=== PATIENT | female | born 1985 | race Caucasian/White ===

== ENCOUNTER 2016-08-29 04:46 | Inpatient (IN) | payer MEDICAID, OTHER ==
[~2016-08-29] VITALS: Ht 149.9 cm; Wt 57.3 kg
[2016-08-29 04:55] VITALS: Ht 149.9 cm; Wt 57.3 kg
[2016-08-29 04:57] VITALS: BP 133/94; PULSE 113; RESP 20
[2016-08-29] MEDS ORDERED: TERBUTALINE 1 ML ONE (05:02)
[2016-08-29] MEDS ORDERED: morphine 10 MG INJ ONE (05:13)
[2016-08-29] MEDS: LACTATED RINGER'S 1,000 ML IV SCH ×6 (05:17→22:42)
[2016-08-29] MEDS ORDERED: MAGNESIUM SULFATE 6 GM in SOD CHLORIDE 0.9% 100 ML IV ONE (05:30)
[2016-08-29] MEDS ORDERED: FENTAnyl 50 MCG/ML VIAL IV PRN ×2 (05:30→23:30)
[2016-08-29] MEDS ORDERED: morphine 10 MG INJ IV ONE (05:30)
[2016-08-29] MEDS ORDERED: BUTORPHANOL 2 MG INJ IV ONE (05:30)
[2016-08-29] MEDS ORDERED: TERBUTALINE 1 MG/ML INJ SC ONE (05:30)
[2016-08-29] MEDS ORDERED: ONDANSETRON 4 MG INJ ONE ×2 (05:31→23:01)
[2016-08-29] MEDS ORDERED: ONDANSETRON 4 MG INJ IV STA (05:32)
--- NOTE | 2016-08-29 05:39 | HP ---
Date/Time of Note Date/Time of Note DATE: 08/29/16 TIME: 05:31 OB - History Hx of Present Free Text/Dictation 30 yo P2 @ 32 wks 4 days, presents in severe pain, w small amt of bleeding. She has h/o 2 prior c/d. She was given her first shot of steroids at [facility] and sent home. Patient's pain decreased slightly after terbutaline and morphine. Sonogram shows intact uterus (unlikely ruptured) and does not show signs of placental abruption. vtx Chief Complaint: Ctx and severe abdominal pain Estimated Due Date: Oct 20, 2016 : 3 Para: 2 Care: Other Other Concerns: prior c/d for abruption repeat c/d at 32 wks for PTL Past Family/Social History * Past Medical, Surgical, Family and Obstetric Histories reviewed from chart. OB Admission Exam Vital Signs Vital Signs Vital Signs Date Time Temp Pulse Resp B/P Pulse Ox O2 Delivery O2 Flow Rate FiO2 08/29/16 04:57 98.6 113 20 133/94 Physical Exam Abdomen: WNL Extremities: Normal Cervical Dilatation: 2cm Effacement: 75% Station: -2 Membranes: Intact Heart Rate: 140's Accelerations: Accelerations Present Decelerations: Variable Decelerations Varibility: Moderate Contractions on Admission: < 5 Minutes Apart Intensity: Moderate OB Assessment/Plan Other Assessment: 30 yo P2 @ 32 wks 4 days presents in PTL, r/o abruption - given terbutaline and morphine - sono shows vtx fetus, no signs of uterine rupture or placental abruption Other plan: will start Magnesium sulfate for neuroprotection and tocolysis If FHT remains Cat I, will attempt to tocolize until second dose of steroids, tomorrow at 3pm If FHR decelerations or patient starts hemorrhaging, will george to emergent c/d. LOVELY HERNANDEZ MD Aug 29, 2016 05:39
[2016-08-29 06:21] LABS: INR 0.94; PROTIME 12.6 Sec (12.2-14.2)
[2016-08-29 06:22] LABS: PARTIAL THROMBOPLASTIN TIME 25.7 Sec (25.0-35.0)
[2016-08-29] MEDS ORDERED: CARBOPROST 250 MCG INJ IM PRN (06:30)
[2016-08-29] MEDS ORDERED: MISOPROSTOL 200 MCG TAB PR PRN ×2 (06:30→23:00)
[2016-08-29] MEDS ORDERED: CEFAZOLIN 2 GM/50 ML (PMX) 50 ML IV SCH (06:30)
[2016-08-29] MEDS ORDERED: METHYLERGONOVINE 0.2 MG INJ IM PRN (06:30)
[2016-08-29] MEDS ORDERED: OXYTOCIN 30 UNITS/LR 500 ML IV PRN (06:30)
--- NOTE | 2016-08-29 06:34 | RADRPT ---
PROCEDURE: Obstetrical ultrasound, limited. CLINICAL INDICATION: Pelvic pain. TECHNIQUE: Multiple sonographic images of the pelvis were obtained using transabdominal technique . Images were obtained with mascorro scale and color Doppler. The images were reviewed on a PACS works tation. COMPARISON: No prior studies are available for comparison. FINDINGS: There is a single living intrauterine gestation with the fetus in a vertex presentation. hear t tones of 150 beats per minute are identified. The placenta is posterior in location, grade 1-2. There is normal amniotic fluid volume with an PIERRE of 10.6 cm. There is no evidence of placenta prev ia or abruption. Measurements were made in order to determine age. The results are as follows: BPD =8.34 cm HC =29.83 cm AC =27.84 cm FL =6.26 cm. Estimated gestational age of approximately 32 weeks and 5 days. The estimated date of delivery is 10/19/2016. The EFW = 1946 +/- 292 grams. Estimated weight percentage equals 31.6%. IMPRESSION: Single viable intrauterine gestation of approximately 32 weeks and 5 days, with an ultrasound CONNER of 10/19/2016. .Nabil Ying MD, MD Date Time Electronically viewed and signed by .Nabil Ying MD, MD on 08/29/2016 06:33 .T/
[2016-08-29 06:37] LABS: BASOPHILS % 0.1 % (0.0-2.0); HEMATOCRIT 28.5 % (37.0-47.0); HEMOGLOBIN 9.7 g/dl (12.0-16.0); LYMPHOCYTES # 1.8 10^3/ul (0.8-2.9); LYMPHOCYTES % 10.8 % (15.0-51.0); MEAN CORPUSCULAR HEMOGLOBIN 29.7 pg (29.0-33.0); MEAN CORPUSCULAR HGB CONC 34.1 g/dl (32.0-37.0); MEAN CORPUSCULAR VOLUME 87.1 fl (82.0-101.0); MEAN PLATELET VOLUME 8.8 fl (7.4-10.4); MONOCYTE # 0.3 10^3/ul (0.3-0.9); MONOCYTES % 1.7 % (0.0-11.0); NEUTROPHIL # 14.5 10^3/ul (1.6-7.5); NEUTROPHILS % 87.4 % (39.0-77.0); PLATELET COUNT 410 10^3/UL (140-440); RED BLOOD COUNT 3.27 10^6/ul (4.20-5.40); RED CELL DISTRIBUTION WIDTH 15.3 % (11.5-14.5); UNCORRECTED WBC 16.6 10^3/ul (4.8-10.8); WHITE BLOOD COUNT 16.6 10^3/ul (4.8-10.8)
[2016-08-29 06:47] LABS: CONDITION 1; LH ANALYZER COMMENTS 1
[2016-08-29] MEDS: MAGNESIUM SULFATE 20 GM/500 ML 500 ML IV SCH ×2 (06:53→18:03)
[2016-08-29] MEDS: morphine 4 MG/ML VIAL IV PRN (06:56)
[2016-08-29] MEDS ORDERED: BETAMET NA PHOS/AC(6 MG/ML) 5ML INJ IM ONE (07:00)
[2016-08-29] MEDS ORDERED: AMPICILLIN 2 GM/NS (PMX) 100 ML IVPB ONE (07:00)
--- NOTE | 2016-08-29 07:34 | TRIAGE ---
OB Triage Datetime Report Generated by CPN: 08/29/2016 07:34 Datetime: 08/29/2016 07:00 Labor Evaluation Frequency: INDETERMINATE Monitor Mode: External Pattern: Normal: <= 5 Contractions in 10 Minutes Heart Rate FHR Baseline Rate: 150 FHR Baseline Changes: No Baseline Change Variability: Minimal - Undetectable to <=5 bpm Decelerations: Variable Category: Category II Comments: APPROPRIATE FOR GESTATIONAL AGE Datetime: 08/29/2016 06:41 Comments: external monitors reapplied, pt. took monitors off Datetime: 08/29/2016 06:30 Labor Evaluation Frequency: 1.5-2 Monitor Mode: External Duration (sec)2399: 80-100 Pattern: Normal: <= 5 Contractions in 10 Minutes Heart Rate FHR Baseline Rate: 150 Monitor Mode: External US FHR Baseline Changes: No Baseline Change Variability: Moderate 6-25 bpm Decelerations: None Category: Category I Datetime: 08/29/2016 06:11 Pain Assessment Comments: PT. SCREAMING, MOVING CONSTANTLY IN BED, STATES PAIN MEDS HAVE NOT HELPE D. Datetime: 08/29/2016 06:09 Vaginal Exam Dilatation (cms): 2.0 Effacement (%): 80 Station: -1 Exam By: LEWIS RN Cervix, Consistency: Soft Cervix, Position: Posterior Presentation 'A': Cephalic Datetime: 08/29/2016 06:00 Labor Evaluation Frequency: 2 Monitor Mode: External Duration (sec)2399: 70-100 Pattern: Normal: <= 5 Contractions in 10 Minutes Heart Rate FHR Baseline Rate: 145 Monitor Mode: External US FHR Baseline Changes: No Baseline Change Variability: Moderate 6-25 bpm Decelerations: Variable Category: Category I Datetime: 08/29/2016 05:57 Monitor Mode: Palpation Resting Tone Ep[place]us: Relaxed Pain Assessment Pain Scale: 10 Pain Presence: Constant Pain Type: Cramping; Contraction Pain Location: Abdomen Pain Assessment Comments: pain meds ineffective Datetime: 08/29/2016 05:37 Nausea/Vomiting: Present Datetime: 08/29/2016 05:33 Stage of : OB Triage Datetime: 08/29/2016 05:15 Stage of : OB Triage Datetime: 08/29/2016 05:14 Labor Evaluation Frequency: 1.5-2 Monitor Mode: External Duration (sec)2399: 70-110 Pattern: Normal: <= 5 Contractions in 10 Minutes Heart Rate FHR Baseline Rate: 135 Monitor Mode: External US FHR Baseline Changes: No Baseline Change Variability: Moderate 6-25 bpm Accelerations: 15X15 Decelerations: Variable Datetime: 08/29/2016 05:05 Stage of : OB Triage Datetime: 08/29/2016 04:57 Assessment Type: Triage EGA: 32.4 Contractions: Regular Vaginal Bleeding: Small Maternal Assessment Level of Consciousness: Fully Conscious Headache: Denies Blurred Vision: No Respiratory Effort: Labored; Regular Rhythm; Equal Expansion Breath Sounds, Left: Clear and Equal Breath Sounds, Right: Clear and Equal Nausea/Vomiting: Denies RUQ Epigastric Pain: Denies Lower Extremities Edema: None Degree: None Upper Extremities Edema: None Degree: None Facial Edema: None Fall Risk Assessment History of Falling: (0) No Secondary Diagnosis: (0) No Ambulatory Aid: (0) Bedrest/Nurse Assist IV Therapy: (0) No Gait: (0) Normal/Bedrest/Immobile Mental Status: (0) Oriented to Own Ability Fall Score: 0 Fall Risk Score Definition: No Risk: No action required Datetime: 08/29/2016 04:53 Time of Arrival: 08/29/2016 04:43 Arrived By: Wheelchair Arrived From: Home Chief Complaint: BLEEDING SINCE 08/28/16 04:43 UC'S SINCE 08/28/16, WAS SEEN AT [facility] FOR PTL Movement: Present Contractions: Regular Rupture of Membranes: Denies Vaginal Bleeding: Small Vaginal Discharge: Denies Recent Sexual Intercouse: Denies Abdominal Trauma: Not Applicable Patient Complaints: Contractions Time Provider Notified: 08/29/2016 04:55 Provider Notified: MARY Initial Plan: EFM, IV HYDRATION, CALL OB Vaginal Exam Dilatation (cms): 2.0 Effacement (%): 80 Station: -2 Exam By: LEWIS TAVERAS Vaginal Bleeding: Scant Cervix, Consistency: Soft Cervix, Position: Posterior Datetime: 08/29/2016 04:50 Pain Assessment Pain Scale: 10 Pain Presence: Constant Pain Type: Contraction Pain Location: Abdomen Pain Assessment Comments: pt. arrived on unit via wc, screaming and writhing in pain
[2016-08-29 07:49] LABS: ADD UMIC YES; URINE BILIRUBIN (Dip) NEGATIVE (NEGATIVE); URINE BLOOD (Dip) 1+ (NEGATIVE); URINE COLOR LT. YELLOW (YELLOW); URINE KETONES (Dip) 3+ (NEGATIVE); URINE LEUKOCYTE ESTERASE (Dip) NEGATIVE (NEGATIVE); URINE NITRITE (Dip) NEGATIVE (NEGATIVE); URINE TOTAL PROTEIN (Dip) NEGATIVE (NEGATIVE); URINE UROBILINOGEN (Dip) 0.2 E.U./dL (0.1-1.0)
[2016-08-29 08:22] LABS: BACTERIA,URINE MODERATE; URINE RBCS 0-2 /HPF (0)
[2016-08-29 08:24] LABS: BARBITURATES Negative (NEGATIVE); BENZODIAZEPINES Negative (NEGATIVE); CANNABINOIDS Positive (NEGATIVE); COCAINE Negative (NEGATIVE); OPIATES Positive (NEGATIVE)
--- NOTE | 2016-08-29 08:52 | RADRPT ---
PROCEDURE: Renal US. CLINICAL INDICATION: Flank pain TECHNIQUE: Multiple sonographic images of the kidneys were obtained. The images were reviewed on a PACS workstation. COMPARISON: No prior studies are available for comparison. FINDINGS: The kidneys are well visualized. The right kidney measures 10 x 4.1 cm. The left kidney measures 11. 3 x 5.8 cm. There are no focal areas of abnormal echogenicity. Mild bilateral hydronephrosis is seen , right greater than left. There is no evidence for obstructive uropathy. The visualized urinary latricia dder is decompressed. A gravid uterus is seen. IMPRESSION: Mild bilateral hydronephrosis which may be secondary to the gravid uterus. A follow-up w ith renal ultrasound is suggested to ensure resolution. RPTAT: HPNM Physician Minh Date Time Electronically viewed and signed by Physician Minh on 08/29/2016 08:52 /
[2016-08-29] MEDS: AMPICILLIN 1 GM/NS (PMX) 50 ML IVPB SCH ×4 (11:35→18:09)
--- NOTE | 2016-08-29 11:58 | HP ---
Date/Time of Note Date/Time of Note DATE: 08/29/16 TIME: 11:36 OB - History Hx of Present Free Text/Dictation 30 YO with IUP at 32 weeks initially presented to [facility] ([facility]) yesterday at 0400 due to constant left sided abdominal pain. At that she did not have bleeding or LOF or UCs. she was evaluated given Stadol and negative renal sono and was discharged. she started feeling UCs, cramps, vaginal bleeding and blood in her urine and called 911 yesterday at 4 pm. she went back to [facility], she had one dose of steroid and pain meds and ob sono. she was observed and she was told her cervix was closed per pt. she was discharged. today at 0400 she came to [facility] c/o pain( unable to describe the pain well), felt urinary sxs, felt pressure and was not feeling well. she was started on Magnesium sulfate and had negative ob and renal sono and had 2nd dose of steroid. urine culture and GBS sent. she is on Amp. she denies any pain or VB or LOF at this time. she has h/o kidney stone 4 previous times and both her parents have strong h/o kidney stones as well. she required stent placement with last IUP. stent had to be removed due to infection. she is late entry to my office for care she also has some elevated BPs. she denies headache or visual changes or RUQ pain Ultrasounds: Other (she was seen by [facility] ronna on Aug 26 due to late entry to [facility]. she had normal sono) Obstetrical Complications: Gestational Hypertension Medical Complications: Other (renal stones and h/o c/s x 2) Past Family/Social History * Past Medical, Surgical, Family and Obstetric Histories reviewed from chart. OB Admission Exam Vital Signs Vital Signs Vital Signs Date Time Temp Pulse Resp B/P Pulse Ox O2 Delivery O2 Flow Rate FiO2 08/29/16 04:57 98.6 113 20 133/94 Physical Exam HEENT: WNL Heart: Rhythm Normal Lungs: Clear, Equal Abdomen: WNL ( back: no CVA tenderness) Extremities: Normal Reflexes: Normal Cervical Dilatation: 2cm Effacement: 75% Station: -3 Membranes: Intact Last 72 hours Lab Results CBC & BMP 08/29/16 04:51 OB Assessment/Plan Other Assessment: IUP 32 weeks Labor. she was told cervix was closed yesterday and she is 2 cm now. no cervical change while at [facility] Vaginal Bleeding. may be due to labor but it also may be due to abruption because she also has elevated BP hypertension. r/o PIH h/o c/s x 2 h/o renal stone Other plan: admit Amp urine culture, GBS culture 24 hr urine collection Magnesium sulfate may be given up to 48 hrs ronna and valeriy consult will treat severe range BPs with Labetalol RICARDO MONGE MD Aug 29, 2016 11:46
[2016-08-29] MEDS ORDERED: LABETALOL 200 MG TAB PO PRN (12:30)
[2016-08-29 13:12] LABS: ALBUMIN 4.2 g/dl (3.3-4.9)
[2016-08-29 13:13] LABS: POTASSIUM 4.2 mmol/L (3.5-5.1)
[2016-08-29 13:15] LABS: ALBUMIN/GLOBULIN RATIO 1.16; BILIRUBIN,INDIRECT 0.2 mg/dl (0-1.1); BILIRUBIN,TOTAL 0.2 mg/dl (0.2-1.3); CREATININE 0.43 mg/dl (0.44-1.00); TOTAL PROTEIN 7.8 g/dl (6.1-8.1)
[2016-08-29 13:16] LABS: CALCIUM 9.5 mg/dl (8.4-10.2); PHOSPHORUS 3.2 mg/dl (2.5-4.9)
--- NOTE | 2016-08-29 16:22 | CONS ---
DATE OF ADMISSION: 08/29/2016 DATE OF CONSULTATION: 08/29/2016 HISTORY OF PRESENT ILLNESS: This is a 30-year-old G3, P2 female who was admitted to [facility] on 08/29/2016 at 32 weeks and 4 days gestational age. Her chief complaint is vaginal bleeding, as well as onset of contractions. She was seen at [facility] on 08/28/2016, given shot of betamethasone and discharged, but she is now receiving magnesium sulfate, a second dose of betamethasone, as well as antibiotics. I was requested to perform consultation by the hoop punch and coiler operator helper. I spoke with mom at length regarding complications associated with delivery at 32 weeks. She reportedly had a previous born at 32 weeks that was cared for at [facility]. We discussed survival data. We discussed morbidities associated with delivery at this gestational age, including but not limited to respiratory distress, syndrome requiring chronic ventilator, as well as chronic oxygen needs, apnea of prematurity, sepsis, as well as necrotizing enterocolitis. Discussed future and long-term morbidities including but not limited to cerebral palsy, attention deficit disorder, learning disability and autism. Mom verbalized her understanding of our discussion. I did encourage her to provide breast milk for this infant. All questions were answered at this point. Thank you for allowing us to participate in the care of this patient. Should any further questions arise, please do not hesitate to contact us. Dictated By: YUE HORTON MD, AM/BENEDICTO Conf#: [id number] DID#: [id number] MTDD
[2016-08-29] MEDS ORDERED: morphine 4 MG/ML VIAL IV STA (20:52)
[2016-08-29] MEDS ORDERED: morphine 10 MG INJ IM ONE (21:00)
[2016-08-29] MEDS ORDERED: LACTATED RINGER'S 1,000 ML IV ONE (21:07)
[2016-08-29] MEDS ORDERED: CITRIC ACID/NA CITRATE 30 ML CUP PO ONE (21:30)
[2016-08-29] MEDS ORDERED: METOCLOPRAMIDE 10 MG INJ IV ONE (21:30)
[2016-08-29] MEDS ORDERED: FAMOTIDINE 20 MG INJ IV ONE (21:30)
[2016-08-29] MEDS ORDERED: morphine SULFATE/PF (10 MG/10 ML) INJ ONE (22:33)
[2016-08-29] MEDS ORDERED: FENTAnyl 50 MCG/ML VIAL ONE (22:33)
[2016-08-29] MEDS ORDERED: PHENYLephrine (100 MCG/ML) 5ML SYG ONE ×3 (22:44→23:11)
[2016-08-29] MEDS ORDERED: MIDAZOLAM 1 MG/ML 2 ML INJ ONE (22:58)
[2016-08-29] MEDS ORDERED: NA PHOSPHATE/BIPHOS 133 ML ENEMA PR PRN (23:00)
[2016-08-29] MEDS ORDERED: LANOLIN 7 GM TUBE TOP PRN (23:00)
[2016-08-29] MEDS ORDERED: OXYCODONE/ACETAMINOPHEN (5/325) TAB PO PRN (23:00)
--- NOTE | 2016-08-29 23:10 | PREOPHP ---
DATE OF ADMISSION: 08/29/2016 HISTORY OF PRESENT ILLNESS: She is a 30-year-old 4, para 3, at 32 weeks, reports to labor and delivery today complaining of vaginal bleeding and severe abdominal pain. She was give n tocolysis using magnesium sulfate as well as pain management by morphine sulfate. She was noticed to have vaginal bleeding on arrival, and her bleeding subsided for several hours, and she was feeli ng fine until about 2 hours ago when she started to have a significant amount of vaginal bleeding an d significant amount of abdominal pain requiring large amount of morphine. Because she has active v aginal bleeding, the decision was made to proceed with repeat delivery for fear of abruptio n and possible ruptured uterus. I discussed with the patient the risks, benefits, indications, alte rnatives of procedure including but not limited to risk of infection; bleeding; damage to other orga ns, bowel, bladder; hernia formation; scar formation; blood transfusions; possibility of emergency h ysterectomy; possibility that tubal ligation may fail and she may have a in future; the fa ct that the baby is premature, and the risks of physical or mental handicap due to prematurity were all discussed with patient. She was allowed to ask questions. All her questions were answered. In formed consent has been obtained. The patient agrees with management to proceed with repeat cesarea n delivery and tubal ligation at this time. PAST MEDICAL HISTORY: Kidney stones. PAST SURGICAL HISTORY: Stent placement, delivery x2. ALLERGIES: NO KNOWN DRUG ALLERGIES. MEDICATIONS: 1. vitamins. 2. Iron. REVIEW OF SYSTEMS: Significant as above. PHYSICAL EXAMINATION: VITAL SIGNS: Stable. She is afebrile. GENERAL: No acute distress. HEENT: No thyromegaly. HEART: Regular rate and rhythm. LUNGS: Clear to auscultation bilaterally. ABDOMEN: Soft, gravid. CERVIX: Not examined at this time, but she was 2 cm earlier. EXTREMITIES: No edema. ASSESSMENT: 1. at 32 weeks. 2. Abruption. 3. labor. 4. History of delivery x2. 5. Desires tubal ligation. 6. Active vaginal bleeding. PLAN: Repeat delivery and tubal ligation. Informed consent has been obtained. Dictated By: RICARDO FOY/BENEDICTO Conf#: [id number] [facility]#: [id number]
[2016-08-29] MEDS ORDERED: OXYTOCIN 30 UNITS/LR 500 ML IV ONE (23:18)
[2016-08-29] MEDS ORDERED: HYDROmorphONE (0.2 MG/ML) 10ML SYG IV PRN ×3 (23:30)
[2016-08-29] MEDS ORDERED: DIPHENHYDRAMINE 50 MG INJ IV PRN (23:30)
[2016-08-29] MEDS ORDERED: ONDANSETRON 4 MG INJ IV PRN (23:30)
[2016-08-29] MEDS ORDERED: PROCHLORPERAZINE 10 MG INJ IV PRN (23:30)
[2016-08-29] MEDS ORDERED: MEPERIDINE 25 MG INJ IV PRN (23:30)
[2016-08-29 23:39] LABS: AADO2 Cord Arterial 66.8 mmHg; Arterial Cord Blood pCO2 42.7 mmHG (25-50); CBA Oxygen Sat 74.3 mmHG; CBA Total Hemglobin 16.8 g/dl; Cord Blood Arterial pO2 31.8 mmHG (15.0-45.0); Fraction OxyHgb Cord Arterial 72.5 %; MODE ROOM AIR; MetHgb Cord Arterial 1.1 %; Sample Type CBA
[2016-08-29 23:41] LABS: CBV Base Excess -4.5 mmol/L; CBV Oxygen Sat 86.3 mmHG; CBV Total Hemglobin 16.6 g/dl; Cord Blood Venous AADO2 64.5 mmHg; Cord Blood Venous pO2 40.6 mmHG (15.0-45.0); Fraction OxyHgb Cord Venous 84.7 %; MODE ROOM AIR; MetHgb Cord Venous 0.9 %; Sample Type CBV
[2016-08-30] MEDS ORDERED: DIPHENHYDRAMINE 50 MG INJ IV PRN
[2016-08-30] MEDS ORDERED: HYDROmorphONE 1 MG/ML SYG IV PRN
[2016-08-30] MEDS ORDERED: NALOXONE (0.4 MG/ML) INJ IV PRN
[2016-08-30] MEDS ORDERED: ONDANSETRON 4 MG INJ IV PRN
[2016-08-30] MEDS ORDERED: ZOLPIDEM 5 MG TAB PO PRN
[2016-08-30] MEDS ORDERED: PROCHLORPERAZINE 10 MG INJ IV PRN
[2016-08-30] MEDS: OXYTOCIN 30 UNITS/LR 500 ML IV SCH ×2 (00:42→02:11)
[2016-08-30] MEDS: AMPICILLIN 1 GM/NS (PMX) 50 ML IVPB SCH (01:00)
[2016-08-30] MEDS: MAGNESIUM SULFATE 20 GM/500 ML 500 ML IV SCH (01:24)
--- NOTE | 2016-08-30 01:29 | OPR ---
DATE OF OPERATION: PREOPERATIVE DIAGNOSES: 1. at 32 weeks. 2. labor. 3. Active vaginal bleeding. 4. Abruption. 5. History of previous delivery x2. POSTOPERATIVE DIAGNOSES: 1. at 32 weeks. 2. labor. 3. Active vaginal bleeding. 4. Abruption. 5. History of previous delivery x2. OPERATION PERFORMED: Repeat delivery. The patient also desires tubal ligation. SURGEON: Ricardo Ron MD ESTIMATED BLOOD LOSS: 700 COMPLICATIONS: None. CONSENT: Please see preop H and P for consent. DESCRIPTION OF PROCEDURE: The patient was taken to the operating room, and spinal anesthesia was gi dennise. The patient was prepped and draped in the usual sterile fashion. Knife was used to make a Pfa nnenstiel skin incision. Incision was taken down in layers. The fascia was cut and undermined, sep arated from the underlying muscle using sharp and blunt dissection. All bleeders were cauterized. Her peritoneum was entered bluntly. A low transverse skin incision was developed over the uterus, a nd a viable was delivered in vertex presentation. The cord was clamped and cut, handed to __ __ for 60 seconds. The placenta was delivered intact, and the uterus was exteriorized, wrapped with a moist lap. The inside uterus was cleaned with dry lap. All debris and membranes were removed. Uterine incision was then closed using #1 Monocryl in 2 layers. A 6 cm distal end of the right tube was ligated 3 times using 0 plain ties. The ligated portion was cut, sent to Pathology. Same procedure was done on contralateral side. There was no bleeding from the tubal ligation site. The site of delivery was evaluated with no bleeding. Rectus mus dontae, rectus fascia and peritoneum were evaluated. All bleeders cauterized. Peritoneal cavity was e xplored. There were no surgical instruments or laps left behind. Peritoneum and rectus muscles kris sed using 2-0 Monocryl, and fascia was closed using #1 Vicryl. Subcutaneous tissue was cleaned, irr igated. All bleeders cauterized, undermined and closed using 2-0 plain and then skin closed using 4 -0 Monocryl. All counts correct. Dictated By: RICARDO FOY/BENEDICTO Conf#: [id number] [facility]#: [id number]
--- NOTE | 2016-08-30 02:21 | DELSUM ---
Delivery Summary A-C Datetime Report Generated by CPN: 08/30/2016 02:21 DELIVERY PERSONNEL Practice Professional: Gallagher, Crystal MATERNAL INFORMATION Delivery Anesthesia: Spinal Medications in Delivery: LR with Pitocin 30 units Estimated Blood Loss (ml): 600 Placenta Cultured: Yes Maternal Complications: Other Other Maternal Complications: suspected placenta abruption, vaginal bleeding LABOR SUMMARY EDC: 10/20/2016 00:00 No. Babies in Womb: 1 Attempted: No Labor Anesthesia: None LABOR INFORMATION Reason for Induction: Not Applicable Oxytocin: N/A Group B Beta Strep: Not Done Antibiotics # of Doses: 5 Antibiotics Time of Last Dose: 2235 Steroids Given: <24Hrs before Delivery Reason Steroids Not Administered: Not Applicable MEMBRANES Membranes Rupture Method: Artificial Rupture of Membranes: 08/29/2016 22:53 Length of Rupture (hr): 0.03 Amniotic Fluid Color: Clear Amniotic Fluid Amount: Moderate Amniotic Fluid Odor: Normal STAGES OF LABOR Stage 3 hr: 0 Stage 3 min: -2 CSECTION DELIVERY Primary Indication: Other Other Primary Indication: suspected abpuption Secondary Indication: N/A CSection Urgency: Non Elective CSection Incidence: Repeat Labor: Labor Elective: Nonelective CSection Incision: Lower Uterine Transverse Sterilization Procedure: [place] BABY A INFORMATION Delivery Date/Time: 08/29/2016 22:55 Method of Delivery: Born in Route : No : N/A Forceps: N/A Vacuum Extraction: N/A Shoulder Dystocia : No SHOULDER DYSTOCIA BABY A Delivery Date/Time: 08/29/2016 22:55 PRESENTATION/POSITION BABY A Presentation: Cephalic Cephalic Presentation: Vertex Breech Presentation: N/A PLACENTA INFORMATION BABY A Placenta Delivery Time : 08/29/2016 22:53 Placenta Method of Delivery: Manual Removal Placenta Status: Delivered SCORES BABY A Heart Rate 1 min: >100 bpm Resp Effort 1 min: Good Cry Reflex Irritability 1 min: Cough/Sneeze/Pulls Away Muscle Tone 1 min: Active Motion Color 1 min: Body [place], Extremit Blue Resuscitation Effort 1 min: Tactile Stimulation SCORE 1 MIN: 9 Heart Rate 5 min: >100 bpm Resp Effort 5 min: Good Cry Reflex Irritability 5 min: Cough/Sneeze/Pulls Away Muscle Tone 5 min: Active Motion Color 5 min: Body [place], Extremit Blue Resuscitation Effort 5 min: Tactile Stimulation SCORE 5 MIN: 9 INFORMATION BABY A Gestational Age at Delivery: 32.4 Gestational Status: - <34 Weeks Infant Outcome : Liveborn Condition : Stable Sex: Female IDENTIFICATION/MEDS BABY A ID Band Number: [id number] Sensor Applied: N/A Vitamin K Given : Not Given Erythromycin Given: Not Given WEIGHT/LENGTH BABY A Infant Birthweight (gm): 1810 Infant Weight (lb): 4 Weight (oz): 0 Length (in): 17.00 Length (cm): 43.18 CORD INFORMATION BABY A No. Cord Vessels: 3 Nuchal Cord : Around Neck x1, Loose Cord Blood Taken: Yes Suction: Mouth; Nose ASSESSMENT BABY A Infant Complications: Other Infant Complications- Other: Physical Findings at Delivery: Within Normal Limits Infant Respirations: Appears Normal Head Bander And Liner Operator/ALS Called : Yes Infant Care By: Jackeline Singleton RN, Lance RT Transferred To: NICU
[2016-08-30 02:35] VITALS: BP 128/80; PULSE 85; RESP 18
[2016-08-30] MEDS ORDERED: KETOROLAC 30 MG INJ IV PRN ×2 (03:00)
[2016-08-30] MEDS: LACTATED RINGER'S 1,000 ML IV SCH ×9 (05:07→22:42)
[2016-08-30] MEDS: IBUPROFEN 600 MG TAB PO SCH ×4 (05:09→18:00)
[2016-08-30 05:30] VITALS: BP 106/63; PULSE 80; RESP 18
[2016-08-30 08:22] LABS: HEMATOCRIT 21.1 % (37.0-47.0); HEMOGLOBIN 7.2 g/dl (12.0-16.0); LYMPHOCYTES # 1.8 10^3/ul (0.8-2.9); LYMPHOCYTES % 7.5 % (15.0-51.0); MEAN CORPUSCULAR HEMOGLOBIN 29.6 pg (29.0-33.0); MEAN CORPUSCULAR HGB CONC 34.1 g/dl (32.0-37.0); MEAN CORPUSCULAR VOLUME 86.7 fl (82.0-101.0); MEAN PLATELET VOLUME 8.2 fl (7.4-10.4); MONOCYTE # 1.1 10^3/ul (0.3-0.9); MONOCYTES % 4.7 % (0.0-11.0); NEUTROPHIL # 21.1 10^3/ul (1.6-7.5); NEUTROPHILS % 87.8 % (39.0-77.0); PLATELET COUNT 316 10^3/UL (140-440); RED BLOOD COUNT 2.44 10^6/ul (4.20-5.40); RED CELL DISTRIBUTION WIDTH 16.1 % (11.5-14.5)
[2016-08-30 08:27] VITALS: BP 121/64; PULSE 76; RESP 18
[2016-08-30 08:27] LABS: CONDITION 1; LH ANALYZER COMMENTS 1
[2016-08-30] MEDS: HYDROmorphONE 1 MG/ML SYG IV PRN ×3 (08:27→20:22)
[2016-08-30] MEDS ORDERED: MULTIVIT/MIN/FOLATE/IRON/PREN TAB PO SCH (09:00)
[2016-08-30] MEDS: MULTIVIT/MIN/FOLATE/IRON/PREN TAB PO SCH (09:00)
[2016-08-30] MEDS: SENNA/DOCUSATE NA (8.6MG/50MG) TAB PO SCH ×2 (09:00→20:21)
--- NOTE | 2016-08-30 14:32 | QN ---
Documentation Comment pod1 pt doing well no complaints no sob no cp vss fundus firm CDI no edema a/p pod 1 doing well Anemia-pt asymptomatic. cbc in am JOHN BHAT MD Aug 30, 2016 14:32
[2016-08-30 16:00] VITALS: BP 112/62; PULSE 68; RESP 16
[2016-08-30 20:00] VITALS: BP 128/76; PULSE 79; RESP 18
[2016-08-30] MEDS: FERROUS SULFATE (EC) 325 MG TAB PO SCH (20:21)
[2016-08-31] MEDS: IBUPROFEN 600 MG TAB PO SCH ×3 (00:18→11:13)
[2016-08-31] MEDS: OXYCODONE/ACETAMINOPHEN (5/325) TAB PO PRN ×3 (00:53→12:45)
[2016-08-31] MEDS: morphine 4 MG/ML VIAL IV PRN (01:35)
[2016-08-31] MEDS: LACTATED RINGER'S 1,000 ML IV SCH ×3 (04:06→06:14)
[2016-08-31 04:29] VITALS: BP 119/62; PULSE 79; RESP 18
[2016-08-31 07:56] VITALS: BP 107/59; PULSE 75; RESP 18
[2016-08-31] MEDS: SENNA/DOCUSATE NA (8.6MG/50MG) TAB PO SCH (08:08)
[2016-08-31] MEDS: MULTIVIT/MIN/FOLATE/IRON/PREN TAB PO SCH (08:09)
[2016-08-31] MEDS: FERROUS SULFATE (EC) 325 MG TAB PO SCH ×2 (08:13→12:44)
[2016-08-31 08:35] LABS: BASOPHILS % 0.2 % (0.0-2.0); HEMATOCRIT 20.5 % (37.0-47.0); LYMPHOCYTES # 2.7 10^3/ul (0.8-2.9); LYMPHOCYTES % 18.5 % (15.0-51.0); MEAN CORPUSCULAR HEMOGLOBIN 29.7 pg (29.0-33.0); MEAN CORPUSCULAR HGB CONC 33.9 g/dl (32.0-37.0); MEAN CORPUSCULAR VOLUME 87.6 fl (82.0-101.0); MEAN PLATELET VOLUME 8.2 fl (7.4-10.4); MONOCYTES % 6.9 % (0.0-11.0); NEUTROPHIL # 10.7 10^3/ul (1.6-7.5); NEUTROPHILS % 74.4 % (39.0-77.0); PLATELET COUNT 263 10^3/UL (140-440); RED BLOOD COUNT 2.34 10^6/ul (4.20-5.40); RED CELL DISTRIBUTION WIDTH 15.6 % (11.5-14.5); UNCORRECTED WBC 14.4 10^3/ul (4.8-10.8); WHITE BLOOD COUNT 14.4 10^3/ul (4.8-10.8)
[2016-08-31 08:53] LABS: CONDITION 1; LH ANALYZER COMMENTS 1
[2016-08-31 08:55] LABS: HEMOGLOBIN 6.9 g/dl (12.0-16.0)
[2016-08-31] MEDS ORDERED: INFLUENZA VIRUS VACCINE 0.5 ML (DISPENSING) IM* ONE (09:00)
--- NOTE | 2016-08-31 10:21 | DS ---
Date/Time of Note Date/Time of Note DATE: 08/31/16 TIME: 10:17 Discharge Summary Admission/Discharge Info Admit Date/Time Aug 29, 2016 at 05:50 Discharge Date/Time 08/31/2016 Final Diagnosis s/p repeat delivery and tubal ligation Anemia Patient Condition: Good Procedures repeat c/s and BTL Hx of Present Illness she was admitted in labor. she developed abruption and had R C/S and BTL. she is anemic. she is aware and will take Fe BID. she has Fe Rx at home. + Flatus Hospital Course she was admitted in labor. she developed abruption and had R C/S and BTL. she is anemic. she is aware and will take Fe BID. she has Fe Rx at home. + Flatus Home Meds No Active Prescriptions or Reported Meds Follow-up Plan 2 wks Pending Labs Laboratory Tests Test 08/31/16 07:45 Basophils # 0.010^3/ul (0.0-0.1) Basophils % 0.2% (0.0-2.0) Blood Morphology Comment Eosinophils # 0.010^3/ul (0.0-0.5) Eosinophils % 0.0% (0.0-7.0) Hematocrit 20.5% (37.0-47.0) Hemoglobin 6.9g/dl (12.0-16.0) Lymphocytes # 2.710^3/ul (0.8-2.9) Lymphocytes % 18.5% (15.0-51.0) Mean Corpuscular Hemoglobin 29.7pg (29.0-33.0) Mean Corpuscular Hemoglobin Concent 33.9g/dl (32.0-37.0) Mean Corpuscular Volume 87.6fl (82.0-101.0) Mean Platelet Volume 8.2fl (7.4-10.4) Monocytes # 1.010^3/ul (0.3-0.9) Monocytes % 6.9% (0.0-11.0) Neutrophils # 10.710^3/ul (1.6-7.5) Neutrophils % 74.4% (39.0-77.0) Nucleated Red Blood Cells # 0.010^3/ul (0.0-0.0) Nucleated Red Blood Cells % 0.0/100WBC (0.0-0.0) Platelet Count 73457^3/UL (140-440) Red Blood Count 2.3410^6/ul (4.20-5.40) Red Cell Distribution Width 15.6% (11.5-14.5) White Blood Count 14.410^3/ul (4.8-10.8) RICARDO MONGE MD Aug 31, 2016 10:21
[2016-09-01] MEDS ORDERED: MEASLES,MUMPS,RUBELLA VACCINE INJ SC* ONE (09:00)
[2016-09-01] MEDS ORDERED: DIPHTH/TET/ACEL PERTUSS (ADULT) 0.5 ML VIAL IM* ONE (09:00)
== END 2016-08-31 13:20 | disposition home or self-care (01) | DRG 765 ==
LOC: OBT 04:46 → L-D 04:48 → OBT 05:49 → L-D 05:50 → OBG 13:04 → L-D 20:45 → PP1 08-30 02:30
PROVIDERS: ADMIT Specialist; ATTEND Specialist
PROC: 0UL70ZZ Occlusion of Bilateral Fallopian Tubes, Open Approach (ICD-10-PCS; 2016-08-29)
PROC: 10D00Z1 Extraction of Products of Conception, Low, Open Approach (ICD-10-PCS; principal; 2016-08-29 21:00)
DX: O34.211 Maternal care for low transverse scar from previous cesarean delivery (principal); O45.93 Premature separation of placenta, unspecified, third trimester; O60.14X0 Preterm labor third trimester with preterm delivery third trimester, not applicable or unspecified; O99.02 Anemia complicating childbirth; O13.4 Gestational [pregnancy-induced] hypertension without significant proteinuria, complicating childbirth; Z30.2 Encounter for sterilization; Z3A.32 32 weeks gestation of pregnancy; Z37.0 Single live birth
CPT/HCPCS: 36415; 36600; 76775; 76815; 80053; 80069; 80076; 80307; 81001; 81003; 82803; 83615; 83735; 85025; 85610; 85730; 86592; 86850; 86900; 86901; 86920; 87340; 88302; 88307; 90686; 94760; 96360; 96372; 96374; 96375; 99464; G0463; J0290; J0690; J0702; J1170; J1885; J2250; J2270; J2274; J2370; J2405; J2590; J3010; J3105; J3475; J7120

== ENCOUNTER 2017-01-12 11:51 | Inpatient (IN) | payer OTHER ==
[~2017-01-12] VITALS: Ht 149.9 cm; Wt 44.0 kg
[2017-01-12] MEDS ORDERED: SOD CHLORIDE 0.9% 200 ML IV STA (12:32)
[2017-01-12] MEDS ORDERED: ONDANSETRON 4 MG INJ IV STA (14:05)
[2017-01-12] MEDS ORDERED: HYDROmorphONE 1 MG/ML SYG IV STA (14:05)
[2017-01-12] MEDS: SOD CHLORIDE 0.9% 1,000 ML IV SCH (17:10)
[2017-01-12 17:28] VITALS: TEMP 99
[2017-01-12] MEDS ORDERED: BISACODYL 10 MG SUPP PR PRN (17:30)
[2017-01-12] MEDS ORDERED: NACL 0.9% 3 ML SYG IV SCH (17:30)
[2017-01-12] MEDS ORDERED: MAGNESIUM HYDROXIDE 30ML CUP PO PRN (17:30)
[2017-01-12] MEDS ORDERED: DOCUSATE SODIUM 100 MG CAP PO PRN (17:30)
[2017-01-12] MEDS ORDERED: ACETAMINOPHEN 325 MG TAB PO PRN (17:30)
[2017-01-12] MEDS ORDERED: HYDROCODONE/APAP (5/325) TAB PO PRN (17:30)
[2017-01-12] MEDS ORDERED: ACETAMINOPHEN 650 MG SUPP PR PRN (17:30)
[2017-01-12 18:18] VITALS: BP 135/74; RESP 18
[2017-01-12] MEDS: morphine 2 MG INJ IV PRN (18:29)
--- NOTE | 2017-01-12 18:43 | HP ---
DATE OF ADMISSION: 01/12/2017 CHIEF COMPLAINT: Left flank pain, likely secondary to UTI/nephrolithiasis. HISTORY OF PRESENT ILLNESS: This is a 31-year-old female, 4, para 4 with history of 3 C-sec tions as well as recurrent UTI and history of renal stones from age of 16. She did come to [facility] from outside hospital secondary to insurance issue due to reports of left flan k pain that started roughly around 8:00 p.m. the night prior to admission. The patient did report t hat she does have recurrent UTI as well as a known history of nephrolithiasis since the age of 16. She reports that her last hospitalization in the hospital was in 11/22/2016 due to the same issues w ith UTI and renal stones. As such, she did report that last night around 8:00 p.m., she started to have left front flank pain with no associated dysuria or fevers. She did come again to the hospital due to pain associated with nausea. She did have initial CT scan of the abdomen and pelvis done at [facility], but did show again multiple bilateral calculi, nonobstructing. It showed no u reteral calculi on imaging. Additionally, she did have blood work done that did show her to have a creatinine of 0.7, BUN of 19 and she was noted to have some leukocytosis with white count of 20.2. She was also seen to be slightly anemic with hemoglobin of 10 and hematocrit of 31.6. Patient was p rovided with IV fluids as well as morphine analgesics and she did have a response. She still report s having some left flank pain 2/10 in intensity, nonradiating at this time, but does report that her pain is alleviated with ____ analgesic. She, of note, does follow up with her urologist, Dr. Sims , as outpatient and saw him last on 01/03/2017. We will evaluate her for the aforementioned issues. MEDICAL AND SURGICAL HISTORY: 1. 4, para 4. 2. History of 3 C-sections. 3. Tubal ligation. 4. History of stent on right kidney with removal in 2014 secondary to recurrent UTI. FAMILY HISTORY: Reported history of nephrolithiasis on mother and father's side. SOCIAL HISTORY: Patient denies any cigarette smoking, illicit drug use or alcohol consumption. HOME MEDICATIONS: None. PHYSICAL EXAMINATION: VITAL SIGNS: Temperature is 99.0, pulse ____, respiratory rate 13, blood pressure is 137/84, pulse oximetry 100% on room air. GENERAL: This is a 31-year-old female, appears stated age, no apparent distress noted at this time. EYES: Pupils equal, round and reactive to light. Anicteric sclerae. NECK: Supple, nontender, no JVD. CARDIOVASCULAR: S1, S2 auscultated, regular rate. PULMONARY: Clear to auscultation bilaterally. No wheezing or rhonchi. ABDOMEN: Soft, minimally tender upon palpation of left lower abdominal quadrant. SKIN: Warm, dry, and intact. NEUROLOGIC: Alert, oriented x3. LABORATORY DATA: Sodium 139, potassium 3.3, BUN is 19, creatinine 0.7, hemoglobin 10, hematocrit 31 .6, platelets are 456 and WBC is 20.2. IMAGING: From outside hospital did show multiple bilateral nonobstructing calculi and also no urete ral calculi seen. IMPRESSION AND PLAN: 1. Nephrolithiasis with suspect urinary tract infection. The patient does report history of recurre nt urinary tract infection as well as a renal stones since age of 16. We will provide patient with aggressive intravenous hydration as well as opioid analgesics. We will follow up on urinalysis as well as urine culture and empirically place patient on Rocephin medication. 2. History of extensive nephrolithiasis. Patient is to follow up with her urologist, Dr. Sims, as outpatient. Patient advised to follow up with urologist as an outpatient. 3. Leukocytosis, likely reactive to #1. Follow up on urine cultures. Continue with IV hydration. Will provide with antipyretics as needed. 4. Abdominal pain secondary to #1. We will provide with appropriate analgesics as well as antiemet ics as needed for nausea. 5. Deep venous thrombosis prophylaxis. sequential compression devices. ADMISSION PROCESS TIME: 40 minutes. Discussed plan of care with Dr. Kenney. Dictated By: SIMONE CHAUDHRY NP for DANA AMEZCUA/BENEDICTO Conf#: [id number] DID#: [id number]
[2017-01-12 19:28] VITALS: BP 136/76; RESP 16
[2017-01-12 19:42] VITALS: Ht 149.9 cm; Wt 44.0 kg
--- NOTE | 2017-01-12 19:57 | QN ---
Documentation Comment HPI: 31-year-old woman presents with left lower quadrant abdominal and flank pain similar to previous episodes. She has a long history of renal stones. She was seen and evaluated initially at [facility], and a CT scan of the abdomen and pelvis revealed multiple bilateral urinary calculi, labs revealed acute leukocytosis and mild anemia. Patient received multiple IV analgesics they are without relief and was admitted to [facility]. She has had some nausea, no chest pain or shortness of breath, no diarrhea, no trauma, no headache or blurry vision. Past medical history: Physical exam: GENERAL: Well-developed, moderate discomfort HEENT: Moist mucous membranes, pink conjunctiva, no cervical spine tenderness or step-off deformities, no goiter, no jaundice or icterus, extraocular movements intact without pain. No submandibular induration, and no pharyngeal erythema NEURO: Alert and oriented 3, cranial nerves II through XII intact bilaterally, pupils equal round reactive to light, no focal deficits or facial asymmetry, sensation intact distally Strength 5/5 in upper and lower extremities bilaterally CARDIAC: Regular rate and rhythm, no murmurs rubs or gallops LUNGS: Clear bilaterally no wheezing crackles or stridor ABDOMEN: Soft nontender, no guarding, no rigidity, no rebound, no psoas sign no obturator sign. SKIN: Warm and dry to touch, no abrasions, contusions, or hematomas, no lacerations, no ecchymosis, no target lesions, and without ulcers EXTREMITIES: No clubbing cyanosis or edema, calves are bilaterally symmetrical, no Homans sign, no popliteal cord sign. Distal pulses equal and bilateral PSYCH: Normal affect without agitation or irritability Medical decision making: IV line was and patient was given 200 cc/h normal saline, for continued pain I administered hydromorphone 1 mg IV and Zofran 4 mg IV. Patient admitted to the hospitalist. Diagnostic impression: #1) acute intractable abdominal and flank pain 2.) Acute bilateral urinary calculi GEETHA LUNDBERG MD Jan 12, 2017 19:57
[2017-01-12] MEDS: HYDROmorphONE 1 MG/ML SYG IV PRN (20:14)
[2017-01-12] MEDS: FAMOTIDINE 20 MG INJ IV SCH (20:14)
[2017-01-12] MEDS: ONDANSETRON 4 MG INJ IV PRN (20:14)
[2017-01-12 22:01] LABS: ADD UMIC YES; UR ASCORBIC ACID NEGATIVE (NEGATIVE); UR BILIRUBIN (Dip) NEGATIVE (NEGATIVE); UR BLOOD (Dip) 1+ mg/dL (NEGATIVE); UR CLARITY SLIGHTLY CLOUDY (CLEAR); UR COLOR YELLOW (YELLOW); UR GLUCOSE (Dip) NEGATIVE (NEGATIVE); UR KETONES (Dip) 2+ mg/dL (NEGATIVE); UR LEUKOCYTE ESTERASE (Dip) 1+ Leu/ul (NEGATIVE); UR MUCUS MANY /HPF (NONE SEEN); UR NITRITE (Dip) NEGATIVE (NEGATIVE); UR RBC 6 /HPF (0-5); UR SPECIFIC GRAVITY (Dip) 1.026 (1.003-1.030); UR SQUAMOUS EPITHELIAL CELL FEW /HPF (FEW); UR TOTAL PROTEIN (Dip) 1+ mg/dl (NEGATIVE); UR UROBILINOGEN (Dip) NEGATIVE (NEGATIVE)
[2017-01-13] MEDS: HYDROmorphONE 1 MG/ML SYG IV PRN ×6 (00:16→21:54)
[2017-01-13] MEDS: SOD CHLORIDE 0.9% 1,000 ML IV SCH ×5 (01:10→21:56)
[2017-01-13 06:41] LABS: ALBUMIN/GLOBULIN RATIO 1.9; BILIRUBIN,INDIRECT 0.1 mg/dl (0-1.1); BILIRUBIN,TOTAL 0.1 mg/dl (0.2-1.3); CALCIUM 8.6 mg/dl (8.4-10.2); CHOL/HDL RATIO 2.8 RATIO; CREATININE 0.66 mg/dl (0.44-1.00); MAGNESIUM 1.8 mg/dl (1.7-2.5); PHOSPHORUS 3.5 mg/dl (2.5-4.9); TOTAL PROTEIN 6.1 g/dl (6.1-8.1)
[2017-01-13 06:54] LABS: T3 UPTAKE 39.9 % (23.5-40.5)
[2017-01-13 07:08] LABS: THYROID STIMULATING HORMONE 0.824 MIU/L (0.465-4.680)
[2017-01-13 07:22] VITALS: BP 110/66; RESP 18
[2017-01-13] MEDS: ONDANSETRON 4 MG INJ IV PRN ×2 (07:46→17:49)
[2017-01-13] MEDS: CEFTRIAXONE 1 GM/50 ML (PMX) 50 ML IVPB SCH (08:44)
[2017-01-13] MEDS: FAMOTIDINE 20 MG INJ IV SCH ×2 (08:44→21:17)
[2017-01-13] MEDS: HYDROCODONE/APAP (5/325) TAB PO PRN (14:52)
--- NOTE | 2017-01-13 16:20 | PN ---
Date/Time of Note Date/Time of Note DATE: 01/13/17 TIME: 16:18 Assessment/Plan VTE Prophylaxis VTE Prophylaxis Intervention: SCD's Lines/Catheters IV Catheter Type (from [facility]): Peripheral IV Urinary Cath still in place: No Assessment/Plan Chief Complaint/Hosp Course IMPRESSION AND PLAN: 1. Nephrolithiasis with suspect urinary tract infection. The patient does report history of recurrent urinary tract infection as well as a renal stones since age of 16. Patient did have urinalysis that was positive leukocyte esterase and nitrite test. Follow-up and urine cultures. Continue on antibiotics for now. Continue with analgesics as well per. 2. History of extensive nephrolithiasis. Patient is to follow up with her urologist, Dr. Sims, as outpatient. Patient advised to follow up with urologist as an outpatient. 3. Leukocytosis, likely reactive to #1. Urine cultures are pending. Continue antibiotics. Stable at present 4. Abdominal pain secondary to #1. Has good control with analgesics. Continue at present. Await for clinical improvement of nephrolithiasis and UTI 5. Deep venous thrombosis prophylaxis. sequential compression devices. Disposition and plan: Continue with antibiotics. Await for clinical improvement of UTI. Follow-up on culture. Discussed plan of care with Dr. Kenney Problems: Subjective 24 Hr Interval Summary Free Text/Dictation Still reports having left flank pain Exam/Review of Systems Vital Signs Vitals Vital Signs Date Time Temp Pulse Resp B/P Pulse Ox O2 Delivery O2 Flow Rate FiO2 01/13/17 07:22 98.1 62 18 110/66 97 01/12/17 17:28 Room Air Intake and Output 01/12/17 01/12/17 01/13/17 14:59 22:59 06:59 Intake Total 200 ml 1490 ml Balance 200 ml 1490 ml Exam Constitutional: alert, oriented Psych: nl mood/affect Head: normocephalic Neck: supple, No jvd Respiratory: clear to auscultation, normal air movement Cardiovascular: regular rate and rhythm Gastrointestinal: non-tender, soft Neurological: [employer] II-XII intact, nl mental status, nl speech Results Result Diagram: 01/13/17 0527 Results 24 hrs Laboratory Tests Test 01/12/17 20:35 01/13/17 05:26 Urine Color YELLOW Urine Clarity SLIGHTLY CLOUDY A Urine pH 6.0 Urine Specific [place] 1.026 Urine Ketones 2+ H Urine Nitrite NEGATIVE Urine Bilirubin NEGATIVE Urine Urobilinogen NEGATIVE Urine Leukocyte Esterase 1+ H Urine Microscopic RBC 6 H Urine Microscopic WBC 25 H Urine Squamous Epithelial Cells FEW Urine Mucus MANY A Urine Hemoglobin 1+ H Urine Glucose NEGATIVE Urine Total Protein 1+ H Sodium Level 143 Potassium Level 4.0 Chloride Level 109 Carbon Dioxide Level 24 Anion Gap 14 Blood Urea Nitrogen 12 Creatinine 0.66 Glucose Level 69 L Hemoglobin A1c 4.9 Calcium Level 8.6 Phosphorus Level 3.5 Magnesium Level 1.8 Total Bilirubin 0.1 L Direct Bilirubin 0.00 Indirect Bilirubin 0.1 Aspartate Amino Transf (AST/SGOT) 35 Alanine Aminotransferase (ALT/SGPT) 40 Alkaline Phosphatase 32 L Total Protein 6.1 Albumin 4.0 Globulin 2.10 Albumin/Globulin Ratio 1.90 Triglycerides Level 58 Cholesterol Level 110 LDL Cholesterol, Calculated 60 HDL Cholesterol 38 Cholesterol/HDL Ratio 2.8 Thyroid Stimulating Hormone (TSH) 0.824 Free Thyroxine Index 2.95 Thyroxine (T4) 7.4 Triiodothyronine (T3) Uptake 39.9 Medications Medications Current Medications Sodium Chloride (NS) 1,000 ml @ 125 mls/hr Q8H IV Last administered on 14:53; Admin Dose 125 MLS/HR; Start 01/12/17 at 17:10 Ondansetron HCl (Zofran Inj) 4 mg Q6H PRN IV NAUSEA AND/OR VOMITING Last administered on 01/13/17 07:46; Admin Dose 4 MG; Start 01/12/17 at 17:30 Acetaminophen (Tylenol Tab) 650 mg Q6H PRN PO PAIN LEVEL 1-3 OR FEVER; Start at 17:30 Acetaminophen (Tylenol Supp) 650 mg Q6H PRN DE PAIN LEVEL 1-3 OR FEVER; Start 01/12/17 at 17:30 Acetaminophen/ Hydrocodone Bitart ([place] (5/325)) 1 tab Q6H PRN PO MODERATE PAIN LEVEL 4-6; Start 01/12/17 at 17:30 Acetaminophen/ Hydrocodone Bitart ([place]asm[place] (5/325)) 2 tab Q6H PRN PO SEVERE PAIN LEVEL 7-10 Last administered on 01/13/17 14:52; Admin Dose 2 TAB; Start at 17:30 Morphine Sulfate (morphine) 2 mg Q4H PRN IV SEVERE PAIN LEVEL 7-10 Last administered on 01/12/17 18:29; Admin Dose 2 MG; Start 01/12/17 at 17:30 Hydromorphone HCl (Dilaudid) 0.5 mg Q4H PRN IV SEVERE PAIN LEVEL 7-10 Last administered on 01/13/17 11:43; Admin Dose 0.5 MG; Start 01/12/17 at 17:30 Docusate Sodium (Colace) 100 mg Q12H PRN PO CONSTIPATION; Start 01/12/17 at 17: 30 Magnesium Hydroxide (Milk Of Mag) 30 ml DAILY PRN PO CONSTIPATION; Start at 17:30 Bisacodyl (Dulcolax Supp) 10 mg DAILY PRN DE CONSTIPATION; Start 01/12/17 at 17 :30 Famotidine 20 mg 20 mg Q12 IV Last administered on 01/13/17 08:44; Admin Dose 20 MG; Start 01/12/17 at 21:00 Ceftriaxone Sodium (Rocephin) 50 ml @ 100 mls/hr DAILY IVPB Last administered on 01/13/17 08:44; Admin Dose 100 MLS/HR; Start 01/13/17 at 09:00 SIMONE CHAUDHRY Jan 13, 2017 16:20
[2017-01-13 19:18] VITALS: BP 128/80; RESP 20
[2017-01-14] MEDS: SOD CHLORIDE 0.9% 1,000 ML IV SCH ×5 (01:10→17:10)
[2017-01-14] MEDS: ONDANSETRON 4 MG INJ IV PRN ×3 (02:36→14:45)
[2017-01-14] MEDS: HYDROmorphONE 1 MG/ML SYG IV PRN ×5 (02:36→20:50)
[2017-01-14 05:46] LABS: ADD SCAN DIFF NO
[2017-01-14 05:52] LABS: BASOPHILS % 0.5 % (0.0-2.0); EOSINOPHILS # 0.3 10^3/ul (0.0-0.5); EOSINOPHILS % 6.1 % (0.0-7.0); HEMATOCRIT 25.1 % (37.0-47.0); HEMOGLOBIN 7.6 g/dl (12.0-16.0); LYMPHOCYTES # 2.3 10^3/ul (0.8-2.9); LYMPHOCYTES % 41.5 % (15.0-51.0); MEAN CORPUSCULAR HEMOGLOBIN 24.1 pg (29.0-33.0); MEAN CORPUSCULAR HGB CONC 30.3 g/dl (32.0-37.0); MEAN CORPUSCULAR VOLUME 79.7 fl (82.0-101.0); MEAN PLATELET VOLUME 11.1 fl (7.4-10.4); MONOCYTE # 0.4 10^3/ul (0.3-0.9); MONOCYTES % 7.8 % (0.0-11.0); NEUTROPHIL # 2.5 10^3/ul (1.6-7.5); NEUTROPHILS % 43.9 % (39.0-77.0); PLATELET COUNT 239 10^3/UL (140-415); RED BLOOD COUNT 3.15 10^6/ul (4.20-5.40); RED CELL DISTRIBUTION WIDTH 17.7 % (11.5-14.5); WHITE BLOOD COUNT 5.6 10^3/ul (4.8-10.8)
[2017-01-14] MEDS: HYDROCODONE/APAP (5/325) TAB PO PRN (05:58)
[2017-01-14 06:44] LABS: CALCIUM 8.2 mg/dl (8.4-10.2); CREATININE 0.61 mg/dl (0.44-1.00); POTASSIUM 3.8 mmol/L (3.5-5.1)
[2017-01-14 07:18] VITALS: BP 126/64; RESP 18
[2017-01-14] MEDS: FAMOTIDINE 20 MG INJ IV SCH ×2 (07:59→20:49)
[2017-01-14] MEDS: CEFTRIAXONE 1 GM/50 ML (PMX) 50 ML IVPB SCH (08:11)
[2017-01-14 11:16] LABS: IRON 18 ug/dl (35-150)
[2017-01-14 11:25] LABS: TOTAL IRON BINDING CAPACITY 266 ug/dl (241-421)
[2017-01-14] MEDS: FERROUS SULFATE (EC) 325 MG TAB PO SCH ×2 (12:55→20:49)
[2017-01-14] MEDS: morphine 2 MG INJ IV PRN (14:51)
--- NOTE | 2017-01-14 16:19 | PN ---
Date/Time of Note Date/Time of Note DATE: 01/14/17 TIME: 16:17 Assessment/Plan VTE Prophylaxis VTE Prophylaxis Intervention: SCD's Lines/Catheters IV Catheter Type (from [facility]): Peripheral IV Urinary Cath still in place: No Assessment/Plan Chief Complaint/Hosp Course IMPRESSION AND PLAN: 1. Nephrolithiasis with suspect urinary tract infection. The patient does report history of recurrent urinary tract infection as well as a renal stones since age of 16. Patient did have urinalysis that was positive leukocyte esterase and nitrite test. Continue on antibiotics for now. Continue with analgesics as well. Improving at present 2. History of extensive nephrolithiasis. Patient is to follow up with her urologist, Dr. Sims, as outpatient. Patient advised to follow up with urologist as an outpatient. 3. Leukocytosis, likely reactive to #1. Urine cultures are pending. Continue antibiotics. Stable at present 4. Abdominal pain secondary to #1. Has good control with analgesics. Continue at present. Await for clinical improvement of nephrolithiasis and UTI 5. Deep venous thrombosis prophylaxis. sequential compression devices. Disposition and plan: Continue with antibiotics. Slowly improving anticipate. discharge within the next 24 hours if medically stable Discussed plan of care with Dr. Kenney Problems: Subjective 24 Hr Interval Summary Free Text/Dictation Still reports having some pain but little bit less at this time. Exam/Review of Systems Vital Signs Vitals Vital Signs Date Time Temp Pulse Resp B/P Pulse Ox O2 Delivery O2 Flow Rate FiO2 01/14/17 07:18 98.2 58 18 126/64 98 01/12/17 17:28 Room Air Intake and Output 01/13/17 01/13/17 01/14/17 15:00 23:00 07:00 Intake Total 850 ml 2240 ml 1000 ml Output Total 250 ml Balance 850 ml 1990 ml 1000 ml Exam Constitutional: alert, oriented Head: normocephalic Eyes: nl conjunctiva Respiratory: clear to auscultation, normal air movement Cardiovascular: regular rate and rhythm Gastrointestinal: non-tender, soft Musculoskeletal: nl extremities to inspection Extremities: normal pulses Neurological: [employer] WORKER II-XII intact, nl mental status, nl speech Results Result Diagram: 01/14/17 0510 01/14/17 0520 Results 24 hrs Laboratory Tests Test 01/14/17 05:10 01/14/17 05:20 White Blood Count 5.6 # Red Blood Count 3.15 #L Hemoglobin 7.6 L Hematocrit 25.1 #L Mean Corpuscular Volume 79.7 L Mean Corpuscular Hemoglobin 24.1 L Mean Corpuscular Hemoglobin Concent 30.3 L Red Cell Distribution Width 17.7 H Platelet Count 239 Mean Platelet Volume 11.1 #H Neutrophils % 43.9 Lymphocytes % 41.5 Monocytes % 7.8 Eosinophils % 6.1 Basophils % 0.5 Nucleated Red Blood Cells % 0.0 Neutrophils # 2.5 Lymphocytes # 2.3 Monocytes # 0.4 Eosinophils # 0.3 Basophils # 0.0 Nucleated Red Blood Cells # 0.0 Sodium Level 143 Potassium Level 3.8 Chloride Level 114 H Carbon Dioxide Level 22 Anion Gap 11 Blood Urea Nitrogen 7 Creatinine 0.61 Glucose Level 73 Calcium Level 8.2 L Iron Level 18 L Total Iron Binding Capacity 266 Percent Iron Saturation 7 L Medications Medications Current Medications Sodium Chloride (NS) 1,000 ml @ 125 mls/hr Q8H IV Last administered on 14:51; Admin Dose 125 MLS/HR; Start 01/12/17 at 17:10 Ondansetron HCl (Zofran Inj) 4 mg Q6H PRN IV NAUSEA AND/OR VOMITING Last administered on 01/14/17 14:45; Admin Dose 4 MG; Start 01/12/17 at 17:30 Acetaminophen (Tylenol Tab) 650 mg Q6H PRN PO PAIN LEVEL 1-3 OR FEVER; Start at 17:30 Acetaminophen (Tylenol Supp) [address] PAIN LEVEL 1-3 OR FEVER; Start 01/12/17 at 17:30 Acetaminophen/ Hydrocodone Bitart ([place] (5/325)) 1 tab Q6H PRN PO MODERATE PAIN LEVEL 4-6; Start 01/12/17 at 17:30 Acetaminophen/ Hydrocodone Bitart ([place]thon (5/325)) 2 tab Q6H PRN PO SEVERE PAIN LEVEL 7-10 Last administered on 01/14/17 05:58; Admin Dose 2 TAB; Start at 17:30 Morphine Sulfate (morphine) 2 mg Q4H PRN IV SEVERE PAIN LEVEL 7-10 Last administered on 01/14/17 14:51; Admin Dose 2 MG; Start 01/12/17 at 17:30 Hydromorphone HCl (Dilaudid) 0.5 mg Q4H PRN IV SEVERE PAIN LEVEL 7-10 Last administered on 01/14/17 11:54; Admin Dose 0.5 MG; Start 01/12/17 at 17:30 Docusate Sodium (Colace) 100 mg Q12H PRN PO CONSTIPATION; Start 01/12/17 at 17: 30 Magnesium Hydroxide (Milk Of Mag) 30 ml DAILY PRN PO CONSTIPATION; Start at 17:30 Bisacodyl (Dulcolax Supp) [address] CONSTIPATION; Start 01/12/17 at 17 :30 Famotidine 20 mg 20 mg Q12 IV Last administered on 01/14/17 07:59; Admin Dose 20 MG; Start 01/12/17 at 21:00 Ceftriaxone Sodium (Rocephin) 50 ml @ 100 mls/hr DAILY IVPB Last administered on 01/14/17 08:11; Admin Dose 100 MLS/HR; Start 01/13/17 at 09:00 Ferrous Sulfate (Ferrous Sulfate (Ec)) 325 mg TID PO Last administered on 12:55; Admin Dose 325 MG; Start 01/14/17 at 13:00 SIMONE CHAUDHRY Jan 14, 2017 16:19
[2017-01-14 19:26] VITALS: BP 128/75; RESP 20
[2017-01-15] MEDS: SOD CHLORIDE 0.9% 1,000 ML IV SCH ×3 (01:43→10:54)
[2017-01-15] MEDS: HYDROmorphONE 1 MG/ML SYG IV PRN ×3 (01:44→11:27)
[2017-01-15 07:14] LABS: ADD SCAN DIFF NO
[2017-01-15 07:25] LABS: BASOPHILS % 0.5 % (0.0-2.0); EOSINOPHILS # 0.2 10^3/ul (0.0-0.5); HEMATOCRIT 26.3 % (37.0-47.0); HEMOGLOBIN 8.3 g/dl (12.0-16.0); LYMPHOCYTES # 2.8 10^3/ul (0.8-2.9); LYMPHOCYTES % 46.2 % (15.0-51.0); MEAN CORPUSCULAR HEMOGLOBIN 24.9 pg (29.0-33.0); MEAN CORPUSCULAR HGB CONC 31.6 g/dl (32.0-37.0); MEAN CORPUSCULAR VOLUME 78.7 fl (82.0-101.0); MEAN PLATELET VOLUME 11.1 fl (7.4-10.4); MONOCYTE # 0.3 10^3/ul (0.3-0.9); MONOCYTES % 5.5 % (0.0-11.0); NEUTROPHIL # 2.6 10^3/ul (1.6-7.5); NEUTROPHILS % 43.6 % (39.0-77.0); PLATELET COUNT 274 10^3/UL (140-415); RED BLOOD COUNT 3.34 10^6/ul (4.20-5.40); RED CELL DISTRIBUTION WIDTH 17.7 % (11.5-14.5)
[2017-01-15 07:39] LABS: CALCIUM 8.1 mg/dl (8.4-10.2); CREATININE 0.6 mg/dl (0.44-1.00); POTASSIUM 3.2 mmol/L (3.5-5.1)
[2017-01-15 08:30] VITALS: BP 142/81; PULSE 75; RESP 18
[2017-01-15] MEDS: CEFTRIAXONE 1 GM/50 ML (PMX) 50 ML IVPB SCH (09:32)
[2017-01-15] MEDS: FAMOTIDINE 20 MG INJ IV SCH (09:32)
[2017-01-15] MEDS: FERROUS SULFATE (EC) 325 MG TAB PO SCH ×2 (09:32→13:30)
[2017-01-15] MEDS ORDERED: POTASSIUM CHLORIDE (SR) 20 MEQ TAB PO STA (10:20)
[2017-01-15] MEDS ORDERED: FER325 PO (11:07)
[2017-01-15] MEDS ORDERED: HYDR-905 PO (11:07)
[2017-01-15] MEDS ORDERED: DOCU-144 PO (11:07)
[2017-01-15] MEDS ORDERED: CIPR500T4 PO (11:07)
--- NOTE | 2017-01-15 11:27 | PDOCDIS ---
Discharge Instructions DIAGNOSIS Discharge Diagnosis 1. Recurrent UTI 2. Nephrolithiasis CONDITION Patient Condition: Stable HOME CARE INSTRUCTIONS: Special Diet: Regular FOLLOW UP/APPOINTMENTS Follow-up Plan 1. Follow up with your urologist in one week 2. Follow up with your primary care provider in 1-2 weeks OTHER ORDERS: Other Orders: 1. Increase your oral consumption of water SIMONE CHAUDHRY Jan 15, 2017 11:27
[2017-01-15] MEDS ORDERED: FAMOTIDINE 20 MG TAB PO SCH (21:00)
== END 2017-01-15 15:30 | disposition home or self-care (01) | DRG 694 ==
LOC: E/R 11:51 → MS2 12:34
PROVIDERS: ADMIT Internal Medicine; ATTEND Internal Medicine
DX: N20.0 Calculus of kidney (principal); N39.0 Urinary tract infection, site not specified; Z87.442 Personal history of urinary calculi; D72.829 Elevated white blood cell count, unspecified; D64.9 Anemia, unspecified
CPT/HCPCS: 80048; 80053; 80061; 81001; 83036; 83540; 83735; 84100; 84436; 84443; 84479; 85025; 87086; J0696; J1170; J2270; J2405; J7030; J7040

== ENCOUNTER 2017-02-28 07:33 | Emergency (ER) | payer OTHER ==
[~2017-02-28] VITALS: Ht 144.8 cm; Wt 43.0 kg
[~2017-02-28 07:33] MED LIST: CIPR500T4 PO; DOCU-144 PO; FER325 PO; HYDR-905 PO
[2017-02-28 07:40] VITALS: Ht 144.8 cm; Wt 43.0 kg
[2017-02-28] MEDS ORDERED: ONDANSETRON 4 MG INJ IV STA ×2 (07:59→09:36)
[2017-02-28] MEDS ORDERED: morphine 4 MG/ML VIAL IV STA (07:59)
[2017-02-28] MEDS ORDERED: LORAZEPAM 2 MG INJ IV ONE (08:30)
[2017-02-28 08:32] LABS: BASOPHIL # 0.1 10^3/ul (0.0-0.1); BASOPHILS % 0.4 % (0.0-2.0); EOSINOPHILS # 0.1 10^3/ul (0.0-0.5); EOSINOPHILS % 0.4 % (0.0-7.0); HEMATOCRIT 32.1 % (37.0-47.0); HEMOGLOBIN 10.3 g/dl (12.0-16.0); LYMPHOCYTES # 2.7 10^3/ul (0.8-2.9); MEAN CORPUSCULAR HEMOGLOBIN 25.8 pg (29.0-33.0); MEAN CORPUSCULAR HGB CONC 32.1 g/dl (32.0-37.0); MEAN CORPUSCULAR VOLUME 80.5 fl (82.0-101.0); MEAN PLATELET VOLUME 11.5 fl (7.4-10.4); MONOCYTE # 0.4 10^3/ul (0.3-0.9); MONOCYTES % 2.9 % (0.0-11.0); NEUTROPHIL # 11.6 10^3/ul (1.6-7.5); NEUTROPHILS % 77.9 % (39.0-77.0); RED BLOOD COUNT 3.99 10^6/ul (4.20-5.40); RED CELL DISTRIBUTION WIDTH 17.6 % (11.5-14.5); WHITE BLOOD COUNT 14.9 10^3/ul (4.8-10.8)
[2017-02-28 08:34] LABS: PLATELET COUNT 366 10^3/UL (140-415); POSITIVE DIFF @See below
[2017-02-28 09:09] LABS: ALBUMIN 4.7 g/dl (3.3-4.9); ALBUMIN/GLOBULIN RATIO 1.46; BILIRUBIN,INDIRECT 0.1 mg/dl (0-1.1); BILIRUBIN,TOTAL 0.1 mg/dl (0.2-1.3); CALCIUM 9.1 mg/dl (8.4-10.2); CREATININE 0.61 mg/dl (0.44-1.00); POTASSIUM 3.9 mmol/L (3.5-5.1); TOTAL PROTEIN 7.9 g/dl (6.1-8.1)
[2017-02-28 09:34] LABS: URINE BLOOD (Dip) POC 2+ (NEGATIVE)
[2017-02-28 09:50] LABS: ADD UMIC YES; UR ASCORBIC ACID NEGATIVE (NEGATIVE); UR BACTERIA FEW /HPF (NONE SEEN); UR BILIRUBIN (Dip) NEGATIVE (NEGATIVE); UR BLOOD (Dip) 2+ mg/dL (NEGATIVE); UR CLARITY SLIGHTLY CLOUDY (CLEAR); UR COLOR YELLOW (YELLOW); UR GLUCOSE (Dip) NEGATIVE (NEGATIVE); UR KETONES (Dip) TRACE mg/dL (NEGATIVE); UR LEUKOCYTE ESTERASE (Dip) TRACE Leu/ul (NEGATIVE); UR MUCUS MANY /HPF (NONE SEEN); UR NITRITE (Dip) NEGATIVE (NEGATIVE); UR RBC 48 /HPF (0-5); UR SPECIFIC GRAVITY (Dip) 1.024 (1.003-1.030); UR SQUAMOUS EPITHELIAL CELL MODERATE /HPF (FEW); UR TOTAL PROTEIN (Dip) 1+ mg/dl (NEGATIVE); UR UROBILINOGEN (Dip) NEGATIVE (NEGATIVE)
[2017-02-28] MEDS: morphine 4 MG/ML VIAL IV STA ×2 (10:01→10:50)
--- NOTE | 2017-02-28 10:04 | RADRPT ---
PROCEDURE: CT abdomen and pelvis without contrast. CLINICAL INDICATION: Abdominal Pain TECHNIQUE: CT scan of the abdomen and pelvis without contrast was performed and is reconstructed a t 2.5 mm contiguous axial intervals from the dome of the diaphragm to the inferior pubic rami.. The patient was scanned without intravenous contrast. Sagittal and coronal reformatted images were obt ained from the axial source images. The calculated radiation dose measures 229 mGy centimeters. The CTDI measures 4.0 mGy. COMPARISON: None. FINDINGS: The lung bases are clear of any infiltrate or nodule. No effusion is seen. The liver is of normal size, contour and attenuation with no mass or ductal dilatation. No gallston es are visualized. No splenic, adrenal or pancreatic abnormalities present. Kidneys are of normal size and contour. No hydronephrosis or masses seen. There are multiple punct ate nonobstructing right renal calculi measuring up to 3 mm in diameter. There is a 3 mm nonobstruc ting stone in the lower pole of the left kidney.. Ureters are of normal course and caliber with no s tone. No bladder mass or stone is present. Uterus and ovaries are normal. There is no aneurysm. No adenopathy is present. No bowel mass or obstruction is present. The appendix is normal. No phlegmon, ascites or pneumop eritoneum is visualized. The osseous structures are intact. IMPRESSION: No evidence of obstructive uropathy, diverticulitis or appendicitis. Multiple bilateral nonobstructi ng renal calculi. .Alex Fraga MD, Date Time Electronically viewed and signed by .Alex Fraga MD, on 02/28/2017 10:03 .A/
--- NOTE | 2017-02-28 10:29 | ERD ---
ER Documentation Chief Complaint Date/Time DATE: 02/28/17 TIME: 10:27 Chief Complaint Complains of abdominal pain and vomiting since this am HPI This is a 31-year-old female who presents to the emergency department today complaining of left-sided abdominal pain, vomiting that started at 530 this morning. Patient states she smokes marijuana daily. States she has a history of kidney stones for many years and states that she saw her urologist last month Dr. Sims, and she is to follow-up next month. She is not taking any medication for the pain. States she has pain with urination. States she has a history of anxiety for which she does not take medication. Denies any fevers or chills ROS All systems reviewed and are negative except as per history of present illness. Medications Home Meds Active Scripts Hydrocodone/Acetaminophen ([place] 5-325 Tablet) 1 Each Tablet, 1 TAB PO Q6H Y for PAIN, #7 TAB Prov:REZA LOYA PA-C 02/28/17 Ondansetron Hcl* (Zofran*) 4 Mg Tablet, 4 MG PO Q6H for NAUSEA AND/OR VOMITING, #30 TAB Prov:REZA LOYA PA-C 02/28/17 Ibuprofen* (Motrin*) 600 Mg Tab, 600 MG PO Q6, #30 TAB Prov:REZA LOYA PA-C 02/28/17 Docusate Sodium* (Colace*) 100 Mg Capsule, 100 MG PO BID Y for constipation, # 30 CAP Prov:REGPERLARSIMONE 01/15/17 Ferrous Sulfate* (Ferrous Sulfate*) 325 Mg Tabec, 325 MG PO TID for 30 Days, TAB Prov:REGPERLARSIMONE 01/15/17 Hydrocodone/Acetaminophen ([place] 7.5-325 Tablet) 1 Each Tablet, 1 EACH PO Q4, # 30 TAB Prov:REGPERLARSIMONE 01/15/17 Ciprofloxacin Hcl* (Ciprofloxacin Hcl*) 500 Mg Tablet, 500 MG PO BID, #14 TAB Prov:REGPERLARSIMONE 01/15/17 Allergies Allergies: Coded Allergies: No Known Allergy (Unverified , 01/12/17) PMhx/Soc History of Surgery: Yes (X3 C SECTION, TUBAL LIGATION) Anesthesia Reaction: No Hx Neurological Disorder: No Hx Respiratory Disorders: No Hx Cardiac Disorders: No Hx Psychiatric Problems: No Hx Miscellaneous Medical Probl: Yes (kidney stones and urinary tract infections ) Hx Alcohol Use: No Hx Substance Use: Yes (marijuana everyday) Hx Tobacco Use: No Smoking Status: Never smoker Physical Exam Vitals Vital Signs Date Time Temp Pulse Resp B/P Pulse Ox O2 Delivery O2 Flow Rate FiO2 02/28/17 11:01 67 12 96 Room Air 02/28/17 07:40 98.0 100 20 181/84 99 Physical Exam Const: Anxious Head: Atraumatic Eyes: Normal Conjunctiva ENT: Normal External Ears, Nose and Mouth. Neck: Full range of motion..~ No meningismus. Resp: Clear to auscultation bilaterally Cardio: Regular rate and rhythm, no murmurs Abd: Soft, left lower quadrant tenderness non distended. Normal bowel sounds. No right lower quadrant pain. No tenderness McBurney's. Skin: No petechiae or rashes Back: No midline or flank tenderness Ext: No cyanosis, or edema Neur: Awake and alert Psych: Normal Mood and Affect Result Diagram: 02/28/17 0805 02/28/17 0837 Results 24 hrs Laboratory Tests Test 02/28/17 08:05 02/28/17 08:37 02/28/17 09:36 02/28/17 09:40 White Blood Count 14.910^3/ul Red Blood Count 3.9910^6/ul Hemoglobin 10.3g/dl Hematocrit 32.1% Mean Corpuscular Volume 80.5fl Mean Corpuscular Hemoglobin 25.8pg Mean Corpuscular Hemoglobin Concent 32.1g/dl Red Cell Distribution Width 17.6% Platelet Count 16028^3/UL Mean Platelet Volume 11.5fl Neutrophils % 77.9% Lymphocytes % 18.0% Monocytes % 2.9% Eosinophils % 0.4% Basophils % 0.4% Nucleated Red Blood Cells % 0.0/100WBC Neutrophils # 11.610^3/ul Lymphocytes # 2.710^3/ul Monocytes # 0.410^3/ul Eosinophils # 0.110^3/ul Basophils # 0.110^3/ul Nucleated Red Blood Cells # 0.010^3/ul Sodium Level 146mmol/L Potassium Level 3.9mmol/L Chloride Level 102mmol/L Carbon Dioxide Level 27mmol/L Anion Gap 21 Blood Urea Nitrogen 17mg/dl Creatinine 0.61mg/dl Glucose Level 162mg/dl Calcium Level 9.1mg/dl Total Bilirubin 0.1mg/dl Direct Bilirubin 0.00mg/dl Indirect Bilirubin 0.1mg/dl Aspartate Amino Transf (AST/SGOT) 22IU/L Alanine Aminotransferase (ALT/SGPT) 30IU/L Alkaline Phosphatase Pending Total Protein 7.9g/dl Albumin 4.7g/dl Globulin 3.20g/dl Albumin/Globulin Ratio 1.46 Lipase 65U/L Urine Color YELLOW Urine Clarity SLIGHTLY CLOUDY Urine pH 7.0 Urine Specific Lucas 1.024 Urine Ketones TRACEmg/dL Urine Nitrite NEGATIVEmg/dL Urine Bilirubin NEGATIVEmg/dL Urine Urobilinogen NEGATIVEmg/dL Urine Leukocyte Esterase TRACELeu/ul Urine Microscopic RBC 48/HPF Urine Microscopic WBC 6/HPF Urine Squamous Epithelial Cells MODERATE/HPF Urine Bacteria FEW/HPF Urine Mucus MANY/HPF Urine Hemoglobin 2+mg/dL Urine Glucose NEGATIVEmg/dL Urine Total Protein 1+mg/dl Bedside Urine pH (LAB) 7.0 Bedside Urine Protein (LAB) 2+ Bedside Urine Glucose (UA) Negative Bedside Urine Ketones (LAB) 1+ Bedside Urine Blood 2+ Bedside Urine Nitrite (LAB) Negative Bedside Urine Leukocyte Esterase (L Negative Current Medications Medications (Trade) Dose Ordered Sig/Berna Route PRN Reason Start Time Stop Time Status Last Admin Dose Admin Morphine Sulfate (morphine) 4 mg ONCE STAT IV 02/28/17 07:59 02/28/17 08:01 DC 02/28/17 08:05 Ondansetron HCl (Zofran Inj) 4 mg ONCE STAT IV 02/28/17 07:59 02/28/17 08:01 DC 02/28/17 08:05 Lorazepam (Ativan) 1 mg ONCE ONCE IV 02/28/17 08:30 02/28/17 08:31 DC 02/28/17 08:13 Ondansetron HCl (Zofran Inj) 4 mg ONCE STAT IV 02/28/17 09:36 02/28/17 09:37 DC 02/28/17 09:41 Morphine Sulfate (morphine) 4 mg ONCE STAT IV 02/28/17 09:45 02/28/17 09:46 DC 02/28/17 10:50 Metoclopramide HCl 10 mg 10 mg ONCE ONCE IV 02/28/17 11:00 02/28/17 11:01 DC 02/28/17 10:50 Sodium Chloride (NS) 500 ml @ 500 mls/hr Q1H ONCE IV 02/28/17 11:00 02/28/17 11:59 DC 02/28/17 10:50 DIAGNOSTIC IMAGING REPORT Patient: MARK MCCARTHY : 1985 Age: 31 Sex: F MR #: [id number] DOS: 02/28/17 0759 Ordering MD: REZA LOYA PA-C Location: [facility] Room/Bed: PROCEDURE: CT abdomen and pelvis without contrast. CLINICAL INDICATION: Abdominal Pain TECHNIQUE: CT scan of the abdomen and pelvis without contrast was performed and is reconstructed at 2.5 mm contiguous axial intervals from the dome of the diaphragm to the inferior pubic rami.. The patient was scanned without intravenous contrast. Sagittal and coronal reformatted images were obtained from the axial source images. The calculated radiation dose measures 229 mGy centimeters. The CTDI measures 4.0 mGy. COMPARISON: None. FINDINGS: The lung bases are clear of any infiltrate or nodule. No effusion is seen. The liver is of normal size, contour and attenuation with no mass or ductal dilatation. No gallstones are visualized. No splenic, adrenal or pancreatic abnormalities present. Kidneys are of normal size and contour. No hydronephrosis or masses seen. There are multiple punctate nonobstructing right renal calculi measuring up to 3 mm in diameter. There is a 3 mm nonobstructing stone in the lower pole of the left kidney.. Ureters are of normal course and caliber with no stone. No bladder mass or stone is present. Uterus and ovaries are normal. There is no aneurysm. No adenopathy is present. No bowel mass or obstruction is present. The appendix is normal. No phlegmon , ascites or pneumoperitoneum is visualized. The osseous structures are intact. IMPRESSION: No evidence of obstructive uropathy, diverticulitis or appendicitis. Multiple bilateral nonobstructing renal calculi. .Alex Fraga MD, MD Date Time Electronically viewed and signed by .Alex Fraga MD, on 02/28/2017 10: 03 .A/ CC: REZA LOYA PA-C Procedures/[facility] This a 31-year-old female presents to the emergency department today with a known history of kidney stones. Patient has been seen here in the past and was admitted for intractable pain. Patient has never had a CT scan here in the past and therefore did obtain laboratory workup as well as imaging Laboratory workup shows an elevated white blood cell count likely reactive from vomiting. She also has hemoglobin of 10.3 and anemia. This appears to be chronic and is is higher than it was on her 2 previous visits. Platelets are within normal limits. Sodium is very mildly elevated otherwise electrolytes are within normal limits. Liver enzymes are within normal limits. Lipase is within normal limits. UA is negative for infection CT abdomen pelvis shows multiple punctate nonobstructing right renal calculi measuring up to 3 mm in diameter. There is a 3 mm nonobstructing stone in the lower pole of the left kidney. There is no bladder mass or stone present. Appendix is normal. There is no bowel mass or obstruction. No evidence of obstructive uropathy, diverticulitis or appendicitis. Patient has chronic abdominal pain and kidney stones that appears to be chronic as well. Patient smokes marijuana on a daily basis and I have suspicion that her vomiting and abdominal pain is caused by cyclic vomiting syndrome secondary to marijuana use. Patient was given IV fluids, Ativan, 8 mg of morphine, 8 mg of Zofran as well as Reglan. Patient was discharged home with a short course of [place], Zofran, Motrin for home She was instructed to follow-up with her urology specialist and was given information to follow-up with her primary care doctor for information for GI specialist given her chronic abdominal pain. Dr. Nava has seen and evaluated the patient and is in agreement with the plan Departure Diagnosis: Primary Impression: Abdominal pain Abdominal location: left lower quadrant Qualified Code: R10.32 - Left lower quadrant pain Condition: Fair REZA LOYA PA-C Feb 28, 2017 10:29
[2017-02-28] MEDS ORDERED: SOD CHLORIDE 0.9% 500 ML IV ONE (11:00)
[2017-02-28] MEDS ORDERED: METOCLOPRAMIDE 10 MG INJ IV ONE (11:00)
[2017-02-28] MEDS ORDERED: IBUP-1542 PO (11:59)
[2017-02-28] MEDS ORDERED: ONDA4TAB8 PO (11:59)
[2017-02-28] MEDS ORDERED: HYDR-906 PO (12:00)
[2017-02-28 12:31] VITALS: BP 141/83; PULSE 75; RESP 18; TEMP 97.9
== END 2017-02-28 12:35 | disposition home or self-care (01) ==
LOC: FTE 07:33
DX: R10.32 Left lower quadrant pain (principal); R11.10 Vomiting, unspecified
CPT/HCPCS: 36415; 74176; 80053; 81001; 83690; 85025; 96374; 96375; 96376; J2060; J2270; J2405; J2765; J7040; Z7502; 81003

== ENCOUNTER 2017-05-05 22:30 | Inpatient (IN) | payer OTHER ==
[~2017-05-05] VITALS: Ht 149.9 cm; Wt 42.5 kg
[~2017-05-05 22:30] MED LIST changes: +HYDR-906 PO; +IBUP-1542 PO; +ONDA4TAB8 PO
--- NOTE | 2017-05-05 23:10 | ERA ---
ER Documentation Chief Complaint Date/Time DATE: 05/05/17 TIME: 23:10 Chief Complaint L flank pain, released from [facility] yesterday, has not filled flomax HPI The patient is a 31-year-old female, presenting to the ER because of recurrent left flank pain about 3 hours prior to arrival. She has history of kidney stone , was discharged from [facility] yesterday with Flomax and [place]. She denies fever , chills, neck pain, chest pain, nausea, vomiting, dysuria, hematuria, diarrhea. She does not smoke nor drink past Medical history: History of kidney stone Past surgical history: Tubal ligation, 2 ROS All systems reviewed and are negative except as per history of present illness. Medications Home Meds Active Scripts Hydrocodone/Acetaminophen ([place] 5-325 Tablet) 1 Each Tablet, 1 TAB PO Q6H Y for PAIN, #7 TAB Prov:REZA LOYA PA-C 02/28/17 Ondansetron Hcl* (Zofran*) 4 Mg Tablet, 4 MG PO Q6H for NAUSEA AND/OR VOMITING, #30 TAB Prov:REZA LOYA PA-C 02/28/17 Ibuprofen* (Motrin*) 600 Mg Tab, 600 MG PO Q6, #30 TAB Prov:REZA LOYA PA-C 02/28/17 Docusate Sodium* (Colace*) 100 Mg Capsule, 100 MG PO BID Y for constipation, # 30 CAP Prov:REGPERLARSIMONE 01/15/17 Ferrous Sulfate* (Ferrous Sulfate*) 325 Mg Tabec, 325 MG PO TID for 30 Days, TAB Prov:REGIDORSIMONE 01/15/17 Hydrocodone/Acetaminophen ([place] 7.5-325 Tablet) 1 Each Tablet, 1 EACH PO Q4, # 30 TAB Prov:REGIDORSIMONE 01/15/17 Ciprofloxacin Hcl* (Ciprofloxacin Hcl*) 500 Mg Tablet, 500 MG PO BID, #14 TAB Prov:SIMONE CHAUDHRY 01/15/17 Allergies Allergies: Coded Allergies: No Known Allergy (Unverified , 01/12/17) PMhx/Soc History of Surgery: Yes (X3 C SECTION, TUBAL LIGATION) Anesthesia Reaction: No Hx Neurological Disorder: No Hx Respiratory Disorders: No Hx Cardiac Disorders: No Hx Psychiatric Problems: No Hx Miscellaneous Medical Probl: Yes (kidney stones and urinary tract infections ) Hx Alcohol Use: No Hx Substance Use: Yes (marijuana everyday) Hx Tobacco Use: No Physical Exam Vitals Vital Signs Date Time Temp Pulse Resp B/P Pulse Ox O2 Delivery O2 Flow Rate FiO2 05/05/17 22:36 97.6 90 16 143/76 98 Physical Exam Const: No acute distress. Head: Atraumatic. Eyes: Normal Conjunctiva. ENT: Normal External Ears, Nose and Mouth. Neck: Full range of motion. No meningismus. Resp: Clear to auscultation bilaterally. Cardio: Regular rate and rhythm. Abd: Soft, non distended, normal bowel sounds, vague and diffuse abdominal tenderness, rigidity, rebound, CVA tenderness Skin: No petechiae or rashes. Back: No midline or flank tenderness. Ext: No cyanosis, or edema. Neur: Awake and alert. No focal deficit Psych: Normal Mood and Affect. Result Diagram: 05/05/17222005/05/17 2221 Results 24 hrs Laboratory Tests Test 05/05/17 22:21 05/05/17 23:10 05/05/17 23:25 White Blood Count 21.910^3/ul Red Blood Count 3.7210^6/ul Hemoglobin 9.5g/dl Hematocrit 30.4% Mean Corpuscular Volume 81.7fl Mean Corpuscular Hemoglobin 25.5pg Mean Corpuscular Hemoglobin Concent 31.3g/dl Red Cell Distribution Width 16.4% Platelet Count 68913^3/UL Mean Platelet Volume 10.4fl Neutrophils % 78.9% Lymphocytes % 14.6% Monocytes % 5.2% Eosinophils % 0.3% Basophils % 0.5% Nucleated Red Blood Cells % 0.0/100WBC Neutrophils # 17.310^3/ul Lymphocytes # 3.210^3/ul Monocytes # 1.110^3/ul Eosinophils # 0.110^3/ul Basophils # 0.110^3/ul Nucleated Red Blood Cells # 0.010^3/ul Sodium Level 146mmol/L Potassium Level 3.2mmol/L Chloride Level 103mmol/L Carbon Dioxide Level 29mmol/L Anion Gap 17 Blood Urea Nitrogen 13mg/dl Creatinine 0.70mg/dl Glucose Level 121mg/dl Calcium Level 9.4mg/dl Total Bilirubin 0.0mg/dl Direct Bilirubin 0.00mg/dl Indirect Bilirubin 0.0mg/dl Aspartate Amino Transf (AST/SGOT) 30IU/L Alanine Aminotransferase (ALT/SGPT) 50IU/L Alkaline Phosphatase 45IU/L Total Protein 7.6g/dl Albumin 4.4g/dl Globulin 3.20g/dl Albumin/Globulin Ratio 1.37 Lipase 100U/L Urine Opiates Screen Positive Urine Barbiturates Negative Urine Amphetamines Screen Negative Urine Benzodiazepines Screen Negative Urine Cocaine Screen Negative Urine Cannabinoids Positive Bedside Urine pH (LAB) 8.5 Bedside Urine Protein (LAB) 2+ Bedside Urine Glucose (UA) Negative Bedside Urine Ketones (LAB) Negative Bedside Urine Blood 2+ Bedside Urine Nitrite (LAB) Negative Bedside Urine Leukocyte Esterase (L Trace Current Medications Medications (Trade) Dose Ordered Sig/Berna Route PRN Reason Start Time Stop Time Status Last Admin Dose Admin Sodium Chloride (NS) 1,000 ml @ 1,000 mls/hr Q1H ONCE IV 05/06/17 00:00 05/06/17 01:05 DC 05/05/17 23:45 Morphine Sulfate (morphine) 4 mg ONCE STAT IV 05/05/17 23:34 05/05/17 23:36 DC 05/05/17 23:45 Ondansetron HCl (Zofran Inj) 4 mg ONCE STAT IV 05/05/17 23:34 05/05/17 23:36 DC 05/05/17 23:41 Ketorolac Tromethamine (Toradol) 30 mg ONCE STAT IV 05/05/17 23:58 05/05/17 23:59 [place] 05/06/17 00:09 Hydromorphone HCl (Dilaudid) 1 mg ONCE ONCE IV 05/06/17 00:18 05/06/17 00:21 DC 05/06/17 00:24 Ondansetron HCl 4 mg 4 mg ONCE ONCE IV 05/06/17 00:48 05/06/17 01:05 DC 05/06/17 00:33 Sodium Chloride 1,000 ml @ 1,000 mls/hr Q1H ONCE IV 05/06/17 01:00 05/06/17 01:59 DC 05/06/17 01:10 Sodium Chloride (NS) 100 ml @ [facility] ONCE .ROUTE 05/06/17 01:11 05/06/17 01:12 DC 05/06/17 01:32 Iohexol 150 ml 150 ml STK-MED ONCE .ROUTE 05/06/17 01:11 05/06/17 01:12 DC 05/06/17 01:32 Potassium Chloride (KCl 40 MEQ/250 ML NS) 250 ml @ 62.5 mls/hr ONCE ONCE IVPB 05/06/17 01:30 05/06/17 05:29 05/06/17 01:49 Lorazepam (Ativan) 1 mg ONCE ONCE IV 05/06/17 01:30 05/06/17 01:31 DC 05/06/17 01:20 Lorazepam 2 mg 2 mg STK-MED ONCE .ROUTE 05/06/17 01:18 05/06/17 01:19 DC Piperacillin Sod/ Tazobactam Sod (Zosyn 3.375gm/ 100 ml (Pmx)) 100 ml @ 200 mls/hr ONCE ONCE IVPB 05/06/17 04:00 05/06/17 04:29 05/06/17 03:43 Procedures/[place] [address] Radiology Main Line: [phone] DIAGNOSTIC IMAGING REPORT Patient: MARK MCCARTHY : 1985 Age: 31 Sex: F MR #: [id number] DOS: 05/06/17 0045 Ordering MD: LING HAIRSTON MD Location: E/R Room/Bed: PROCEDURE: CT Abdomen with and without contrast. CLINICAL INDICATION: Abdominal pain. TECHNIQUE: CT scan of the abdomen and pelvis with contrast was performed on a multi-detector high-resolution CT scanner. The patient was scanned before and after the uncomplicated administration of 100 cc of Omnipaque 300 intravenous contrast. Coronal and sagittal reformatted images were obtained from the axial source images. Images were reviewed on a high-resolution PACS workstation. One or more of the following dose reduction techniques were used: - Automated exposure control. - Adjustment of the mA and/or kV according to patient size. - Use of iterative reconstruction technique. Exam CTD/vol = 3.95 mGy. Total exam DLP = 404.64 mGy-cm. COMPARISON: 02/28/2017. FINDINGS: Evaluation of the lung bases demonstrates no pleural or parenchymal disease. Abdomen: The liver is normal in size. There is no focal mass or dilatation of the biliary tree. The gallbladder is not distended. The spleen, pancreas and bilateral adrenal glands are within normal limits. Bilateral kidneys are normal in size with symmetric enhancement. There are multiple right renal calculi measuring up to 3 mm in size. There is a 2.5 mm calculus within the lower pole of the left kidney ureteral calculus identified. There are small renal cysts bilaterally. There is no hydronephrosis or hydroureter. There is no retroperitoneal adenopathy. The abdominal aorta is of normal caliber. There is no abnormal bowel wall thickening or distension. There is no bowel obstruction or free air. The appendix is not visualized. There is no diverticulosis or diverticulitis. There is no ascites. Pelvis: The bladder is unremarkable. The uterus and adnexa are within normal limits. There is no significant pelvic adenopathy or free fluid. Evaluation of the osseous structures demonstrates no suspicious lytic or blastic lesion. IMPRESSION: No acute abnormality identified within the abdomen and pelvis. Bilateral nonobstructing renal calculi. .Nabil Ying MD, MD Date Time Electronically viewed and signed by .Nabil Ying MD, on 05/06/2017 02:57 .T/ CC: LING HAIRSTON MD MEDICAL MAKING DECISION: The patient is a 31-year-old female, presenting with acute abdominal pain of unclear etiology, acute hypokalemia. She was treated with 2 L normal saline for clinical dehydration, morphine 4 mg IV, Toradol 30 mg IV, Dilaudid 1 mg IV for pain, Zofran 4 mg IV 2 for nausea, potassium chloride 40 mEq IV for acute hypokalemia, Ativan 1 mg IV for acute anxiety and Zosyn IV empirically for acute leukocytosis of unclear etiology The differential diagnoses considered include but are not limited to cholelithiasis, cholecystitis, cystitis, pancreatitis, hepatitis, gastritis, peptic ulcer disease, gastric ulcer, appendicitis, diverticulitis, cholangitis, choledocholithiasis, partial small bowel obstruction, drug-seeking behavior, ischemic bowel. Departure Diagnosis: Primary Impression: Abdominal pain Additional Impressions: Hypokalemia Marijuana abuse Anemia Condition: Stable Comments I discussed the findings with the patient. I discussed the patient with the hospitalist Dr. Graff at 3:30 AM who was made aware of the lab, the treatment, the patient condition. The patient is admitted to [facility] The patient's blood pressure was elevated (>120/80) but appears stable without evidence of hypertension emergency or urgency. The patient was counseled about the risks of hypertension and urged to pursue outpatient monitoring and therapy within a week with their primary care physician. LING HAIRSTON MD May 05, 2017 23:10
[2017-05-05 23:18] LABS: URINE BLOOD (Dip) POC 2+ (NEGATIVE)
[2017-05-05] MEDS ORDERED: ONDANSETRON 4 MG INJ IV STA (23:34)
[2017-05-05] MEDS ORDERED: morphine 4 MG/ML VIAL IV STA (23:34)
[2017-05-05 23:35] LABS: BASOPHIL # 0.1 10^3/ul (0.0-0.1); BASOPHILS % 0.5 % (0.0-2.0); EOSINOPHILS # 0.1 10^3/ul (0.0-0.5); EOSINOPHILS % 0.3 % (0.0-7.0); HEMATOCRIT 30.4 % (37.0-47.0); HEMOGLOBIN 9.5 g/dl (12.0-16.0); LYMPHOCYTES # 3.2 10^3/ul (0.8-2.9); LYMPHOCYTES % 14.6 % (15.0-51.0); MEAN CORPUSCULAR HEMOGLOBIN 25.5 pg (29.0-33.0); MEAN CORPUSCULAR HGB CONC 31.3 g/dl (32.0-37.0); MEAN CORPUSCULAR VOLUME 81.7 fl (82.0-101.0); MEAN PLATELET VOLUME 10.4 fl (7.4-10.4); MONOCYTE # 1.1 10^3/ul (0.3-0.9); MONOCYTES % 5.2 % (0.0-11.0); NEUTROPHIL # 17.3 10^3/ul (1.6-7.5); NEUTROPHILS % 78.9 % (39.0-77.0); PLATELET COUNT 509 10^3/UL (140-415); RED BLOOD COUNT 3.72 10^6/ul (4.20-5.40); RED CELL DISTRIBUTION WIDTH 16.4 % (11.5-14.5); WHITE BLOOD COUNT 21.9 10^3/ul (4.8-10.8)
[2017-05-05 23:50] LABS: ALBUMIN 4.4 g/dl (3.3-4.9); ALBUMIN/GLOBULIN RATIO 1.37; CALCIUM 9.4 mg/dl (8.4-10.2); CREATININE 0.7 mg/dl (0.44-1.00); POTASSIUM 3.2 mmol/L (3.5-5.1); TOTAL PROTEIN 7.6 g/dl (6.1-8.1)
[2017-05-05] MEDS ORDERED: KETOROLAC 30 MG INJ IV STA (23:58)
[2017-05-06] MEDS ORDERED: HYDROmorphONE 1 MG/ML SYG IV ONE (00:18)
[2017-05-06] MEDS ORDERED: ONDANSETRON 4 MG INJ IV ONE (00:48)
[2017-05-06] MEDS ORDERED: SOD CHLORIDE 0.9% 1,000 ML IV ONE ×2 (01:00)
[2017-05-06 01:11] LABS: OPIATES Positive (NEGATIVE)
[2017-05-06] MEDS ORDERED: IOHEXOL 300MG/ML 150 ML BTL ONE (01:11)
[2017-05-06] MEDS ORDERED: SOD CHLORIDE 0.9% 100 ML ONE (01:11)
[2017-05-06 01:12] LABS: BARBITURATES Negative (NEGATIVE); BENZODIAZEPINES Negative (NEGATIVE); CANNABINOIDS Positive (NEGATIVE); COCAINE Negative (NEGATIVE)
[2017-05-06] MEDS ORDERED: LORAZEPAM 2 MG INJ ONE (01:18)
[2017-05-06] MEDS ORDERED: POTASSIUM CHLORIDE 250 ML IVPB ONE (01:30)
[2017-05-06] MEDS ORDERED: LORAZEPAM 2 MG INJ IV ONE ×2 (01:30→05:00)
--- NOTE | 2017-05-06 02:58 | RADRPT ---
PROCEDURE: CT Abdomen with and without contrast. CLINICAL INDICATION: Abdominal pain. TECHNIQUE: CT scan of the abdomen and pelvis with contrast was performed on a multi-detector high -resolution CT scanner. The patient was scanned before and after the uncomplicated administration o f 100 cc of Omnipaque 300 intravenous contrast. Coronal and sagittal reformatted images were obtain ed from the axial source images. Images were reviewed on a high-resolution PACS workstation. One or more of the following dose reduction techniques were used: - Automated exposure control. - Adjustment of the mA and/or kV according to patient size. - Use of iterative reconstruction technique. Exam CTD/vol = 3.95 mGy. Total exam DLP = 404.64 mGy-cm. COMPARISON: 02/28/2017. FINDINGS: Evaluation of the lung bases demonstrates no pleural or parenchymal disease. Abdomen: The liver is normal in size. There is no focal mass or dilatation of the biliary tree. T he gallbladder is not distended. The spleen, pancreas and bilateral adrenal glands are within al l limits. Bilateral kidneys are normal in size with symmetric enhancement. There are multiple righ t renal calculi measuring up to 3 mm in size. There is a 2.5 mm calculus within the lower pole of th e left kidney ureteral calculus identified. There are small renal cysts bilaterally. There is no hy dronephrosis or hydroureter. There is no retroperitoneal adenopathy. The abdominal aorta is of nor mal caliber. There is no abnormal bowel wall thickening or distension. There is no bowel obstruction or free air . The appendix is not visualized. There is no diverticulosis or diverticulitis. There is no ascit es. Pelvis: The bladder is unremarkable. The uterus and adnexa are within normal limits. There is no significant pelvic adenopathy or free fluid. Evaluation of the osseous structures demonstrates no suspicious lytic or blastic lesion. IMPRESSION: No acute abnormality identified within the abdomen and pelvis. Bilateral nonobstructing renal calculi. .Nabil Ying MD, MD Date Time Electronically viewed and signed by .Nabil Ying MD, MD on 05/06/2017 02:57 .T/
[2017-05-06] MEDS ORDERED: PIPER-TAZO 3.375 GM IV (PMX) 100 ML IVPB ONE (04:00)
--- NOTE | 2017-05-06 04:53 | RADRPT ---
PROCEDURE: XR Chest. CLINICAL INDICATION: cough TECHNIQUE: Portable single view of the chest COMPARISON: None. FINDINGS: The cardiomediastinal silhouette appears within normal limits. The lungs are clear and no pleural e ffusion or significant edema is seen. No bony abnormality is seen. IMPRESSION: No definite acute pulmonary disease. RPTAT: [facility] Penelope Damon Physician Date Time Electronically viewed and signed by Penelope Damon Physician on 05/06/2017 04:53 LE/
[2017-05-06 07:00] VITALS: TEMP 98.1
[2017-05-06] MEDS ORDERED: NACL 0.9% 3 ML SYG IV SCH (08:30)
[2017-05-06] MEDS ORDERED: OXYCODONE/ACETAMINOPHEN (5/325) TAB PO PRN (08:30)
[2017-05-06] MEDS ORDERED: ALBUTEROL/IPRATROPIUM (NEB) 3 ML AMP HHN PRN (08:30)
[2017-05-06] MEDS ORDERED: DOCUSATE SODIUM 100 MG CAP PO PRN (08:30)
[2017-05-06] MEDS ORDERED: ACETAMINOPHEN 325 MG TAB PO PRN (08:30)
[2017-05-06] MEDS ORDERED: ONDANSETRON 4 MG INJ IV PRN (08:30)
[2017-05-06 08:35] VITALS: BP 110/67; PULSE 81; RESP 19
[2017-05-06] MEDS: FERROUS SULFATE (EC) 325 MG TAB PO SCH ×3 (08:42→21:44)
[2017-05-06] MEDS: SOD CHLORIDE 0.9% 1,000 ML IV SCH ×3 (08:42→23:31)
[2017-05-06] MEDS: TAMSULOSIN (SR) 0.4 MG CAP PO SCH (08:43)
[2017-05-06 08:59] VITALS: Ht 149.9 cm; Wt 42.5 kg
[2017-05-06] MEDS: HEPARIN 5,000 UNIT/0.5 ML VIAL SC SCH ×3 (09:00→21:50)
--- NOTE | 2017-05-06 09:52 | HP ---
Date/Time of Note Date/Time of Note DATE: 05/06/17 TIME: 09:41 Assessment/Plan VTE Prophylaxis VTE Prophylaxis Intervention: heparin Lines/Catheters IV Catheter Type (from [facility] Peripheral IV Assessment/Plan Assessment/Plan 1. Recurrent nephrolithiasis -Patient has been having this issue for about [address] abdomen pelvis shows renal calculus but nonobstructing. -will start Flomax -Continue IV fluid -We will consider adding corticosteroid since it is shown they can be used as expulsive agents 2. Sepsis, as evidenced by leukocytosis and tachycardia, likely secondary to UTI -IV antibiotic -Follow-up culture results HPI/ROS Admit Date/Time Admit Date/Time May 06, 2017 at 05:58 Hx of Present Illness This is a 31-year-old female with a history of recurrent nephrolithiasis and a UTI who presented to ER for left flank pain. Denied fever, chills, gross hematuria. Patient has been admitted here for nephrolithiasis, last admission being in January of this year. At that time she was instructed to follow-up with Dr. Sims, urologist. She was just admitted to [facility] for the same and was discharged with the Flomax but did not get it filled. When she presented to the ER here, CT abdomen pelvis showed There are multiple right renal calculi measuring up to 3 mm in size. There is a 2.5 mm calculus within the lower pole of the left kidney ureteral calculus identified. Labs shows white count of 22,000. Patient has been afebrile. PMH/Family/Social Social History Smoking Status: Never smoker Exam/Review of Systems Vital Signs Vitals Vital Signs Date Time Temp Pulse Resp B/P Pulse Ox O2 Delivery O2 Flow Rate FiO2 05/06/17 08:35 98.2 81 19 110/67 100 Room Air Exam Constitutional: distress Head: atraumatic, normocephalic Eyes: EOMI, PERRL Respiratory: clear to auscultation, normal air movement Gastrointestinal: non-tender, soft Labs Result Diagram: 05/05/171 05/05/171 Medications Medications Current Medications Sodium Chloride (NS) 1,000 ml @ 125 mls/hr Q8H IV Last administered on t 08:42; Admin Dose 125 MLS/HR; Start 05/06/17 at 08:01 Ondansetron HCl (Zofran Inj) 4 mg Q6H PRN IV NAUSEA AND/OR VOMITING; Start at 08:30 Acetaminophen (Tylenol Tab) 650 mg Q6H PRN PO PAIN LEVEL 1-3 OR FEVER; Start 05/06/17 at 08:30 Oxycodone/ Acetaminophen (Percocet (5/ 325)) 1 tab Q6H PRN PO MODERATE PAIN LEVEL 4-6; Start 05/06/17 at 08:30 Oxycodone/ Acetaminophen (Percocet (5/ 325)) 2 tab Q6H PRN PO SEVERE PAIN LEVEL 7-10; Start 05/06/17 at 08:30 Morphine Sulfate (morphine) 4 mg Q4H PRN IV SEVERE PAIN LEVEL 7-10; Start at 08:30 Heparin Sodium (Porcine) (Heparin (5000 Units/0.5 ml)) 5,000 unit Q12 SC ; Start 05/06/17 at 09:00 Docusate Sodium (Colace) 100 mg BID PRN PO constipation; Start 05/06/17 at 08: 30 Ferrous Sulfate (Ferrous Sulfate (Ec)) 325 mg TID PO ; Start 05/06/17 at 09:00 Tamsulosin HCl 0.4 mg 0.4 mg DAILY PO ; Start 05/06/17 at 09:00 Cefepime HCl (Maxipime 1gm/50 ml (Pmx)) 50 ml @ 100 mls/hr Q12 IVPB ; Start at 09:00 AYAZ ELLISON MD May 06, 2017 09:51
[2017-05-06] MEDS: CEFEPIME 1GM/50 ML (PMX) 50 ML IVPB SCH ×2 (10:08→21:44)
[2017-05-06 14:16] VITALS: BP 125/76; PULSE 78; RESP 20
[2017-05-06] MEDS: OXYCODONE/ACETAMINOPHEN (5/325) TAB PO PRN (16:41)
[2017-05-06] MEDS: morphine 2 MG INJ IV PRN ×2 (17:47→21:55)
[2017-05-06 19:12] VITALS: BP 137/71; RESP 18
[2017-05-07] MEDS: morphine 2 MG INJ IV PRN ×2 (01:52→05:52)
[2017-05-07 01:56] VITALS: BP 134/77; PULSE 66; RESP 18
[2017-05-07] MEDS: SOD CHLORIDE 0.9% 1,000 ML IV SCH (03:23)
[2017-05-07 05:40] LABS: BASOPHILS % 0.7 % (0.0-2.0); EOSINOPHILS # 0.1 10^3/ul (0.0-0.5); EOSINOPHILS % 1.5 % (0.0-7.0); HEMOGLOBIN 8.1 g/dl (12.0-16.0); LYMPHOCYTES # 3.2 10^3/ul (0.8-2.9); LYMPHOCYTES % 59.2 % (15.0-51.0); MEAN CORPUSCULAR HGB CONC 31.2 g/dl (32.0-37.0); MEAN CORPUSCULAR VOLUME 83.3 fl (82.0-101.0); MONOCYTE # 0.3 10^3/ul (0.3-0.9); NEUTROPHIL # 1.8 10^3/ul (1.6-7.5); NEUTROPHILS % 33.4 % (39.0-77.0); PLATELET COUNT 270 10^3/UL (140-415); RED BLOOD COUNT 3.12 10^6/ul (4.20-5.40); RED CELL DISTRIBUTION WIDTH 16.3 % (11.5-14.5); WHITE BLOOD COUNT 5.4 10^3/ul (4.8-10.8)
[2017-05-07 06:07] LABS: ALBUMIN 3.1 g/dl (3.3-4.9); ALBUMIN/GLOBULIN RATIO 1.4; BILIRUBIN,INDIRECT 0.2 mg/dl (0-1.1); BILIRUBIN,TOTAL 0.2 mg/dl (0.2-1.3); CALCIUM 7.7 mg/dl (8.4-10.2); CREATININE 0.63 mg/dl (0.44-1.00); MAGNESIUM 1.5 mg/dl (1.7-2.5); PHOSPHORUS 3.7 mg/dl (2.5-4.9); POTASSIUM 3.8 mmol/L (3.5-5.1); TOTAL PROTEIN 5.3 g/dl (6.1-8.1)
[2017-05-07 07:24] VITALS: BP 136/71; RESP 18
[2017-05-07] MEDS: FERROUS SULFATE (EC) 325 MG TAB PO SCH (08:13)
[2017-05-07] MEDS: TAMSULOSIN (SR) 0.4 MG CAP PO SCH (08:13)
[2017-05-07] MEDS: CEFEPIME 1GM/50 ML (PMX) 50 ML IVPB SCH (08:14)
[2017-05-07] MEDS: HEPARIN 5,000 UNIT/0.5 ML VIAL SC SCH (08:30)
[2017-05-07] MEDS: OXYCODONE/ACETAMINOPHEN (5/325) TAB PO PRN (08:36)
[2017-05-07] MEDS ORDERED: CIPR500T4 PO (09:27)
--- NOTE | 2017-05-07 09:28 | PDOCDIS ---
Discharge Instructions CONDITION Patient Condition: Good HOME CARE INSTRUCTIONS: Diet Instructions: Regular ACTIVITY: Activity Restrictions: No Restrictions FOLLOW UP/APPOINTMENTS Follow-up Plan F/U WITH YOUR PCP IN 1-2 WEEKS EDGARDO BIRMINGHAM May 07, 2017 09:27
[2017-05-07] MEDS ORDERED: MAGNESIUM OXIDE 400 MG TAB PO ONE (09:30)
--- NOTE | 2017-05-08 19:32 | DS ---
Date/Time of Note Date/Time of Note DATE: 05/08/17 TIME: 19:29 Discharge Summary Admission/Discharge Info Admit Date/Time May 06, 2017 at 05:58 Discharge Date/Time May 07, 2017 at 09:55 Discharge Diagnosis 1. Recurrent nephrolithiasis-stable -Patient has been having this issue for about 15 years, CT abdomen pelvis shows renal calculus but nonobstructing. 2. Sepsis, as evidenced by leukocytosis and tachycardia, likely secondary to UTI-resolved -Status post IV antibiotics, DC with p.o. antibiotics Patient Condition: Good Hospital Course Patient is a 31-year-old female with a history of recurrent nephrolithiasis and a UTI who presented to ER for left flank pain. CT abdomen showed nonobstructing stones, patient did have evidence of sepsis likely from a UTI and was started on antibiotics. Patient did improve with resolution of sepsis and on day of discharge patient vitals, labs and physical exam are stable she had no further acute complaints questions answered. Home Meds Active Scripts Ciprofloxacin Hcl* (Ciprofloxacin Hcl*) 500 Mg Tablet, 500 MG PO BID for 3 Days , TAB Prov:EDGARDO BIRMINGHAM 05/07/17 Hydrocodone/Acetaminophen ([place] 5-325 Tablet) 1 Each Tablet, 1 TAB PO Q6H Y for PAIN, #7 TAB Prov:REZA LOYA PA-C 02/28/17 Ondansetron Hcl* (Zofran*) 4 Mg Tablet, 4 MG PO Q6H for NAUSEA AND/OR VOMITING, #30 TAB Prov:REZA LOYA PA-C 02/28/17 Ibuprofen* (Motrin*) 600 Mg Tab, 600 MG PO Q6, #30 TAB Prov:REZA LOYA PA-C 02/28/17 Docusate Sodium* (Colace*) 100 Mg Capsule, 100 MG PO BID Y for constipation, # 30 CAP Prov:SIMONE CHAUDHRY 01/15/17 Ferrous Sulfate* (Ferrous Sulfate*) 325 Mg Tabec, 325 MG PO TID for 30 Days, TAB Prov:SIMONE CHAUDHRY 01/15/17 Hydrocodone/Acetaminophen ([place] 7.5-325 Tablet) 1 Each Tablet, 1 EACH PO Q4, # 30 TAB Prov:SIMONE CHAUDHRY 01/15/17 Discontinued Scripts Ciprofloxacin Hcl* (Ciprofloxacin Hcl*) 500 Mg Tablet, 500 MG PO BID, #14 TAB Prov:SIMONE CHAUDHRY 01/15/17 Follow-up Plan F/U WITH YOUR PCP IN 1-2 WEEKS Primary Care Provider Selina Kenny DO Time spent on discharge: > 30 minutes EDGARDO BIRMINGHAM May 08, 2017 19:31
== END 2017-05-07 09:55 | disposition home or self-care (01) | DRG 872 ==
LOC: E/R 22:30 → MS3 05-06 05:58 → MS2 05-06 18:38
PROVIDERS: ADMIT Internal Medicine; ATTEND Internal Medicine
DX: A41.9 Sepsis, unspecified organism (principal); N39.0 Urinary tract infection, site not specified; N20.0 Calculus of kidney
CPT/HCPCS: 36415; 71010; 74178; 80053; 80307; 81003; 83036; 83690; 83735; 84100; 85025; 87040; 87081; 87086; 96374; 96375; 96376; J0692; J1170; J1644; J1885; J2060; J2270; J2405; J2543; J3480; J7030; Q9967